=== PATIENT | male | born 1960 | race Caucasian/White ===

== ENCOUNTER 2021-04-11 01:50 | Inpatient (IN) ==
[2021-04-11] MEDS ORDERED: Ondansetron 4 MG/2 ML VIAL IVP PRN (04:22)
[2021-04-11] MEDS ORDERED: Naloxone 0.4 MG/ML INJ IVP PRN (04:22)
[2021-04-11] MEDS ORDERED: Acetaminophen 325 MG TABLET PO PRN (04:22)
[2021-04-11] MEDS ORDERED: Ringers Solution, Lactated 1,000 ML IVC SCH (04:30)
[2021-04-11 05:22] LABS: Mean Corpuscular Volume 88.1 fL (83.0-100.0); Red Blood Count 3.86 M/mcL (4.19-5.50); White Blood Count 12.1 K/mcL (4.3-11.1)
[2021-04-11 05:23] LABS: Mean Corpuscular HGB Conc 35.3 g/dL (31.6-35.5); Mean Corpuscular Hemoglobin 31.1 pg (28.0-33.3); Mean Platelet Volume 10.1 fL (9.4-12.4); Platelet Count 155 K/mcL (140-400); Red Cell Distribution Width 13.2 % (11.5-14.5)
[2021-04-11 05:34] LABS: Prothrombin Time 13.5 Seconds (9.4-12.1)
[2021-04-11 05:35] LABS: INR 1.2
[2021-04-11 05:37] LABS: VBG Ionized Calcium 0.84 mmol/L (1.15-1.35)
[2021-04-11 05:43] LABS: Alanine Aminotransferase 27 Units/L (7-52); Albumin 2.1 g/dL (3.5-5.7); Albumin/Globulin Ratio 0.8 (1.1-2.2); Alkaline Phosphatase 168 Units/L (34-104); Aspartate Amino Transferase 41 Units/L (13-39); BUN/Creatinine Ratio 30 (6-26); Bilirubin,Total 0.4 mg/dL (0.3-1.0); Blood Urea Nitrogen 100 mg/dL (8-23); Calcium 6.3 mg/dL (8.6-10.3); Carbon Dioxide 15 mEq/L (23-29); Chloride 93 mEq/L (98-107); Cholesterol 28 mg/dL (< 200); Globulin 2.8 g/dL (2.4-3.5); Glucose 68 mg/dL (70-105); HDL Cholesterol 4 mg/dL (40-59); Magnesium 1.6 mg/dL (1.6-2.6); Osmolality,Calculated 285 (280-300); Potassium 4.3 mEq/L (3.5-5.1); Sodium 123 mEq/L (136-145); Total Protein 4.9 g/dL (6.4-8.9); Troponin I < 0.03 ng/mL (< 0.04); eGFR For African Americans 23 (> 60); eGFR For Non-African Americans 19 (> 60)
[2021-04-11 05:56] LABS: Lymphocytes # 1.7 K/mcL (0.6-4.6); Monocytes # 1.5 K/mcL (0.0-1.3); Neutrophils # 8.7 K/mcL (1.6-8.9); Toxic Granulation Present (Not Present)
[2021-04-11 05:57] LABS: Platelet Estimate Normal (Normal); Poikilocytosis 1+ (Not Present)
[2021-04-11 05:59] LABS: Triglycerides 128 mg/dL (< 150)
[2021-04-11] MEDS: 0.9 % Sodium Chloride 1,000 ML IVC SCH ×2 (07:39→17:44)
[2021-04-11] MEDS: Calcium Gluconate 1gm/50mL 1 GM/50 ML BAG IVPB SCH ×2 (07:48→09:53)
[2021-04-11] MEDS ORDERED: Piperacillin/Tazobactam 3.375 GM in 0.9 % Sodium Chloride Mini Bag 100 ML IVPB SCH (08:00)
[2021-04-11] MEDS ORDERED: Dextrose Gel 15 GM/37.5 ML TUBE PO PRN ×2 (10:11)
[2021-04-11] MEDS ORDERED: *HR* Dextrose 50 % in Water (Vial) 50 ML VIAL IVP PRN (10:11)
[2021-04-11] MEDS ORDERED: D5% in Water 1,000 ML IVC PRN (10:11)
[2021-04-11 11:43] LABS: Adenovirus Not Detected (Not Detect); Bordetella Pertussis Not Detected (Not Detect); Chlamydophila pneumoniae Not Detected (Not Detect); Coronavirus 229E Not Detected (Not Detect); Coronavirus HKU1 Not Detected (Not Detect); Coronavirus NL63 Not Detected (Not Detect); Coronavirus OC43 Not Detected (Not Detect); Human Metapneumovirus Not Detected (Not Detect); Human Rhinovirus/Enterovirus Not Detected (Not Detect); Influenza A Subtype 2009 H1 Not Detected (Not Detect); Influenza B Not Detected (Not Detect); Mycoplasma pneumoniae Not Detected (Not Detect); Parainfluenza Virus 1 Not Detected (Not Detect); Parainfluenza Virus 2 Not Detected (Not Detect); Parainfluenza Virus 3 Not Detected (Not Detect); Parainfluenza Virus 4 Not Detected (Not Detect); Respiratory Syncytial Virus Not Detected (Not Detect); SARS-CoV-2 Not Detected (Not Detect)
[2021-04-11 13:29] LABS: Calcium 6.7 mg/dL (8.6-10.3)
[2021-04-11 13:58] LABS: Amorphous Sediment,Urine Few per hpf (None-Few); Bilirubin,Urine Negative (Negative); Blood,Urine Negative (Negative); Clarity,Urine Clear (Clear); Color,Urine Light-Yellow (Yellow); Glucose,Urine (UA) Normal (Normal); Ketones,Urine 10 mg/dL (Negative); Leukocyte Esterase,Urine Negative (Negative); Nitrite,Urine Negative (Negative); Protein,Urine 30 mg/dL (Neg-Trace); RBC,Urine 0-3 per hpf (0-3); Specific Gravity,Urine 1.017 (1.010-1.025); Urobilinogen,Urine Normal (Normal); WBC,Urine 0-3 per hpf (0-3)
[2021-04-11 15:27] LABS: Protein/Creatinine Ratio,Urine 1.15 mg/mg (0.00-0.20); Sodium, Urine 22.3 mEq/L
[2021-04-11] MEDS: MethylPREDNISolone 40 MG/ML VIAL IVP SCH (17:43)
[2021-04-11] MEDS: *HR* Heparin 5,000 UNIT/ML VIAL SQ SCH (17:43)
[2021-04-11] MEDS: Piperacillin/Tazobactam 3.375 GM in 0.9 % Sodium Chloride Mini Bag 100 ML IVPB SCH (17:53)
[2021-04-11 23:53] LABS: Calcium 6.7 mg/dL (8.6-10.3); Potassium 4.2 mEq/L (3.5-5.1)
[2021-04-11 23:54] LABS: Calcium 6.7 mg/dL (8.6-10.3); Potassium 4.2 mEq/L (3.5-5.1)
[2021-04-12 03:01] LABS: Hematocrit 32.8 % (37.5-50.1); Hemoglobin 10.9 g/dL (12.9-16.9); Mean Corpuscular HGB Conc 33.2 g/dL (31.6-35.5); Mean Corpuscular Hemoglobin 29.5 pg (28.0-33.3); Mean Platelet Volume 9.9 fL (9.4-12.4); Platelet Count 194 K/mcL (140-400); Red Blood Count 3.69 M/mcL (4.19-5.50); Red Cell Distribution Width 13.2 % (11.5-14.5); White Blood Count 10.7 K/mcL (4.3-11.1)
[2021-04-12 03:06] LABS: Mean Corpuscular Volume 88.9 fL (83.0-100.0)
[2021-04-12 03:21] LABS: Calcium 6.9 mg/dL (8.6-10.3); Potassium 4.2 mEq/L (3.5-5.1)
[2021-04-12] MEDS: Piperacillin/Tazobactam 3.375 GM in 0.9 % Sodium Chloride Mini Bag 100 ML IVPB SCH ×3 (03:29→20:06)
[2021-04-12] MEDS: MethylPREDNISolone 40 MG/ML VIAL IVP SCH ×2 (06:14→17:02)
[2021-04-12] MEDS: *HR* Heparin 5,000 UNIT/ML VIAL SQ SCH ×2 (06:22→17:15)
[2021-04-12] MEDS ORDERED: Lidocaine -MPF 2% 2 ML VIAL ONE (07:10)
[2021-04-12] MEDS ORDERED: *HR* FentaNYL (PF) 100 MCG/2 ML VIAL ONE (07:10)
[2021-04-12] MEDS ORDERED: Ondansetron 4 MG/2 ML VIAL ONE (07:10)
[2021-04-12] MEDS ORDERED: *HR* Midazolam HCl 2 MG/2 ML VIAL ONE (07:13)
[2021-04-12] MEDS ORDERED: Isovue-300 50ML VIAL ONE (07:14)
[2021-04-12] MEDS ORDERED: Ondansetron 4 MG/2 ML VIAL IVP PRN ×2 (07:36→09:20)
[2021-04-12] MEDS ORDERED: *HR* HYDROmorphone PF 0.5 MG/0.5 ML SYRINGE IVP PRN (07:36)
[2021-04-12] MEDS ORDERED: *HR* Meperidine 25 MG/ML SYRINGE IVP PRN (07:36)
[2021-04-12] MEDS ORDERED: *HR* HYDROMORPHONE 2 MG/ML VIAL ONE (08:01)
[2021-04-12] MEDS ORDERED: Dextrose Gel 15 GM/37.5 ML TUBE PO PRN ×2 (09:20)
[2021-04-12] MEDS ORDERED: Naloxone 0.4 MG/ML INJ IVP PRN (09:20)
[2021-04-12] MEDS ORDERED: *HR* Dextrose 50 % in Water (Vial) 50 ML VIAL IVP PRN (09:20)
[2021-04-12] MEDS ORDERED: D5% in Water 1,000 ML IVC PRN (09:20)
[2021-04-12] MEDS ORDERED: Acetaminophen 325 MG TABLET PO PRN (09:20)
[2021-04-12] MEDS: 0.9 % Sodium Chloride 1,000 ML IVC SCH ×3 (16:24→19:56)
[2021-04-13 01:17] LABS: Hematocrit 33.7 % (37.5-50.1); Hemoglobin 11.3 g/dL (12.9-16.9); Mean Corpuscular HGB Conc 33.5 g/dL (31.6-35.5); Mean Corpuscular Hemoglobin 30.3 pg (28.0-33.3); Mean Corpuscular Volume 90.3 fL (83.0-100.0); Mean Platelet Volume 9.5 fL (9.4-12.4); Platelet Count 193 K/mcL (140-400); Red Blood Count 3.73 M/mcL (4.19-5.50); Red Cell Distribution Width 13.6 % (11.5-14.5); White Blood Count 14.5 K/mcL (4.3-11.1)
[2021-04-13 01:38] LABS: BUN/Creatinine Ratio 28 (6-26); Blood Urea Nitrogen 35 mg/dL (8-23); Calcium 7.3 mg/dL (8.6-10.3); Carbon Dioxide 21 mEq/L (23-29); Chloride 99 mEq/L (98-107); Glucose 121 mg/dL (70-105); Osmolality,Calculated 275 (280-300); Potassium 4.2 mEq/L (3.5-5.1); Sodium 128 mEq/L (136-145); eGFR For African Americans > 60 (> 60); eGFR For Non-African Americans 60 (> 60)
[2021-04-13] MEDS: Piperacillin/Tazobactam 3.375 GM in 0.9 % Sodium Chloride Mini Bag 100 ML IVPB SCH ×2 (02:06→13:49)
[2021-04-13] MEDS: 0.9 % Sodium Chloride 1,000 ML IVC SCH ×2 (02:07→09:13)
[2021-04-13] MEDS: *HR* Heparin 5,000 UNIT/ML VIAL SQ SCH ×2 (05:14→17:01)
[2021-04-13] MEDS: MethylPREDNISolone 40 MG/ML VIAL IVP SCH (05:55)
[2021-04-13] MEDS ORDERED: Ringers Solution, Lactated 1,000 ML IVC SCH (11:15)
[2021-04-13] MEDS ORDERED: 0.9 % Sodium Chloride 1,000 ML IVC SCH (11:56)
[2021-04-13] MEDS ORDERED: Lidocaine -MPF 2% 5 ML VIAL ONE (12:20)
[2021-04-13] MEDS ORDERED: Diphenoxylate/Atropine 1 TAB TABLET PO PRN ×2 (14:10→17:38)
[2021-04-13 14:59] VITALS: BP 120/60; PULSE 55; TEMP 97.8; O2SAT 93
[2021-04-13] MEDS ORDERED: NON-FORMULARY MEDICATION 1 EACH EACH (Melatonin 10 MG Tablet) PO PRN (17:38)
[2021-04-13] MEDS ORDERED: NON-FORMULARY MEDICATION 1 EACH EACH (Oxycodone Immed Rel 10 MG Tablet) PO PRN (17:38)
[2021-04-13] MEDS ORDERED: QUEtiapine Fumarate 100 MG TABLET PO SCH (21:00)
[2021-04-13] MEDS ORDERED: Insulin DETEMIR 100 UNIT/ML X5UNITS SUBQ SCH (21:00)
[2021-04-13] MEDS ORDERED: Piperacillin/Tazobactam 3.375 GM in 0.9 % Sodium Chloride Mini Bag 100 ML IVPB SCH (22:00)
[2021-04-14] MEDS ORDERED: Insulin LISPRO 300 UNITS/3 ML VIAL SUBQ SCH (07:30)
[2021-04-14] MEDS ORDERED: Aspirin Enteric Coated 81 MG Tablet PO SCH (09:00)
[2021-04-14] MEDS ORDERED: NON-FORMULARY MEDICATION 1 EACH EACH (Omeprazole [Prilosec] 40 MG Capsule.Dr) PO SCH (09:00)
[2021-04-14] MEDS ORDERED: NON-FORMULARY MEDICATION 1 EACH EACH (Atorvastatin Calcium [Lipitor] 20 MG Tablet) PO SCH (09:00)
== END 2021-04-13 18:04 | disposition home or self-care (01) | DRG 854 ==
LOC: 2NNU → SUATTDRO 04:22 → 3ANU 15:36
PROVIDERS: ADMIT Internal Medicine; ATTEND Student in an Organized Health Care Education/Training Program
PROC: ENDOCBX (2021-04-13 14:40)

== ENCOUNTER 2021-05-19 14:37 | Inpatient (IN) ==
[2021-05-19 15:17] LABS: Hematocrit 47.2 % (37.5-50.1); Hemoglobin 15.5 g/dL (12.9-16.9); Mean Corpuscular HGB Conc 32.8 g/dL (31.6-35.5); Mean Corpuscular Hemoglobin 31.2 pg (28.0-33.3); Mean Platelet Volume 9.1 fL (9.4-12.4); Platelet Count 363 K/mcL (140-400); Red Blood Count 4.97 M/mcL (4.19-5.50); Red Cell Distribution Width 16.9 % (11.5-14.5); White Blood Count 21.3 K/mcL (4.3-11.1)
[2021-05-19] MEDS ORDERED: diazePAM 10 MG/2 ML SYRINGE IVP ONE (15:25)
[2021-05-19] MEDS ORDERED: Ondansetron 4 MG/2 ML VIAL IVP ONE (15:25)
[2021-05-19] MEDS ORDERED: 0.9 % Sodium Chloride 1,000 ML IVC ONE ×2 (15:25→15:59)
[2021-05-19 15:51] LABS: Alanine Aminotransferase 18 Units/L (7-52); Albumin 3.1 g/dL (3.5-5.7); Albumin/Globulin Ratio 0.9 (1.1-2.2); Alkaline Phosphatase 221 Units/L (34-104); Aspartate Amino Transferase 17 Units/L (13-39); BUN/Creatinine Ratio 16 (6-26); Bilirubin,Total 0.4 mg/dL (0.3-1.0); Blood Urea Nitrogen 77 mg/dL (8-23); Calcium 5.9 mg/dL (8.6-10.3); Carbon Dioxide 10 mEq/L (23-29); Chloride 99 mEq/L (98-107); Creatine Kinase 34 Units/L (30-223); Globulin 3.5 g/dL (2.4-3.5); Glucose 126 mg/dL (70-105); Magnesium 1.5 mg/dL (1.6-2.6); Osmolality,Calculated 281 (280-300); Potassium 3.9 mEq/L (3.5-5.1); Sodium 123 mEq/L (136-145); Thyroid Stimulating Hormone 4.878 mcIU/mL (0.340-5.600); Total Protein 6.6 g/dL (6.4-8.9); Troponin I < 0.03 ng/mL (< 0.04); eGFR For African Americans 15 (> 60); eGFR For Non-African Americans 12 (> 60)
[2021-05-19 15:52] LABS: Lymphocytes # 2.1 K/mcL (0.6-4.6); Monocytes # 1.1 K/mcL (0.0-1.3); Neutrophils # 18.1 K/mcL (1.6-8.9)
[2021-05-19 15:53] LABS: Platelet Estimate Normal (Normal)
[2021-05-19 15:54] LABS: Anisocytosis 1+ (Not Present)
[2021-05-19] MEDS ORDERED: Naloxone 0.4 MG/ML INJ IVP PRN (16:56)
[2021-05-19] MEDS ORDERED: Dextrose Gel 15 GM/37.5 ML TUBE PO PRN ×2 (17:00)
[2021-05-19] MEDS ORDERED: *HR* Dextrose 50 % in Water (Syg) 50 ML SYRINGE IVP PRN (17:00)
[2021-05-19] MEDS ORDERED: D5% in Water 1,000 ML IVC PRN (17:00)
[2021-05-19] MEDS: Sodium Bicarbonate 150 MEQ in 0.45 % Sodium Chloride 1,000 ML IVC SCH (18:28)
[2021-05-19] MEDS: *HR* Heparin 5,000 UNIT/ML VIAL SQ SCH (20:50)
[2021-05-19] MEDS: Piperacillin/Tazobactam 3.375 GM in 0.9 % Sodium Chloride Mini Bag 100 ML IVPB SCH ×2 (20:51→20:58)
[2021-05-20 03:37] LABS: Bacteria,Urine Few per hpf (None-Few); Bilirubin,Urine Negative (Negative); Blood,Urine Moderate (Negative); Budding Yeast,Urine Few per hpf (None Seen); Clarity,Urine Turbid (Clear); Color,Urine Yellow (Yellow); Glucose,Urine (UA) Normal (Normal); Ketones,Urine Trace mg/dL (Negative); Leukocyte Esterase,Urine Large (Negative); Mucus,Urine Few per lpf (None-Few); Nitrite,Urine Negative (Negative); PH,Urine 5.5 pH Units (5.0-8.0); Protein,Urine 50 mg/dL (Neg-Trace); RBC,Urine 30-50 per hpf (0-3); Specific Gravity,Urine 1.015 (1.010-1.025); Squamous Epithelial Cell,Urine Few per hpf (None-Few); Urobilinogen,Urine Normal (Normal); WBC,Urine TNTC per hpf (0-3)
[2021-05-20 05:31] LABS: Calcium 4.8 mg/dL (8.6-10.3); Magnesium 1.3 mg/dL (1.6-2.6); Phosphorous 5.3 mg/dL (2.7-4.5)
[2021-05-20] MEDS: Piperacillin/Tazobactam 3.375 GM in 0.9 % Sodium Chloride Mini Bag 100 ML IVPB SCH ×2 (05:35→17:22)
[2021-05-20] MEDS: *HR* Heparin 5,000 UNIT/ML VIAL SQ SCH ×2 (05:35→17:22)
[2021-05-20] MEDS ORDERED: Potassium Chloride 20 MEQ, Lidocaine 1% 2 ML in 0.9 % Sodium Chloride 250 ML IVPB ONE (05:46)
[2021-05-20] MEDS: Calcium Gluconate 1gm/50mL 1 GM/50 ML BAG IVPB SCH ×2 (06:45→09:00)
[2021-05-20 07:00] LABS: Activated Partial Thrombo Time 27.3 Seconds (26.0-36.0); INR 1.1; Prothrombin Time 12.5 Seconds (9.4-12.1)
[2021-05-20] MEDS: Sodium Bicarbonate 150 MEQ in 0.45 % Sodium Chloride 1,000 ML IVC SCH (08:41)
[2021-05-20] MEDS: Insulin LISPRO 300 UNITS/3 ML VIAL SUBQ SCH ×3 (08:51→16:06)
[2021-05-20 09:43] LABS: Basophils # 0.1 K/mcL (0.0-0.2); Basophils % 0.3 %; Eosinophils % 0.1 %; Hematocrit 35.7 % (37.5-50.1); Lymphocytes # 1.1 K/mcL (0.6-4.6); Mean Corpuscular HGB Conc 34.2 g/dL (31.6-35.5); Mean Corpuscular Hemoglobin 31.2 pg (28.0-33.3); Mean Corpuscular Volume 91.3 fL (83.0-100.0); Mean Platelet Volume 9.6 fL (9.4-12.4); Monocytes # 1.7 K/mcL (0.0-1.3); Monocytes % 10.7 %; Neutrophils # 12.4 K/mcL (1.6-8.9); Platelet Count 239 K/mcL (140-400); Red Blood Count 3.91 M/mcL (4.19-5.50); Red Cell Distribution Width 15.9 % (11.5-14.5); Segmented Neutrophils % 79.9 %; White Blood Count 15.5 K/mcL (4.3-11.1)
[2021-05-20 10:12] LABS: Hemoglobin 12.2 g/dL (12.9-16.9)
[2021-05-20] MEDS: Ondansetron 4 MG/2 ML VIAL IVP PRN (11:42)
[2021-05-20 12:26] LABS: Platelet Estimate Normal (Normal)
[2021-05-20] MEDS ORDERED: Diphenoxylate/Atropine 1 TAB TABLET PO PRN (12:56)
[2021-05-20] MEDS ORDERED: *HR* Promethazine 25 MG/ML VIAL IM PRN (12:59)
[2021-05-20] MEDS ORDERED: Sodium Bicarbonate 150 MEQ in D5% in Water 1,000 ML IVC PRN (13:00)
[2021-05-20] MEDS: Sodium Bicarbonate 150 MEQ in D5% in Water 1,000 ML IVC SCH (16:13)
[2021-05-20 16:38] LABS: Phosphorous 4.7 mg/dL (2.7-4.5)
[2021-05-20] MEDS: MethylPREDNISolone 40 MG/ML VIAL IVP SCH (17:22)
[2021-05-20 18:16] LABS: Adenovirus F 40/41 PCR Not detected (Not detect); Astrovirus PCR Not detected (Not detect); C.difficile Toxin A/B Gene PCR Not detected (Not detect); Campylobacter by PCR Not detected (Not detect); Cryptosporidium by PCR Not detected (Not detect); Cyclospora cayetanensis PCR Not detected (Not detect); E. coli O157 by PCR Not detected (Not detect); Entamoeba histolytica PCR Not detected (Not detect); Enteroaggregative E.coli(EAEC) Not detected (Not detect); Enteropathogenic E.coli(EPEC) Not detected (Not detect); Enterotoxigenic E.coli (ETEC) Not detected (Not detect); Giardia lamblia PCR Not detected (Not detect); Norovirus GI/GII PCR Not detected (Not detect); Plesiomonas shigelloides PCR Not detected (Not detect); Rotavirus A PCR Not detected (Not detect); Salmonella PCR Not detected (Not detect); Sapovirus PCR Not detected (Not detect); Shig/EnteroinvasiveE coli EIEC Not detected (Not detect); Shigalike tox-prod E coli STEC Not detected (Not detect); Vibrio PCR Not detected (Not detect); Vibrio cholerae PCR Not detected (Not detect); Yersinia enterocolitica PCR Not detected (Not detect)
[2021-05-20] MEDS: QUEtiapine Fumarate 100 MG TABLET PO SCH (21:37)
[2021-05-21] MEDS: Sodium Bicarbonate 150 MEQ in D5% in Water 1,000 ML IVC SCH ×2 (05:19→09:09)
[2021-05-21] MEDS: MethylPREDNISolone 40 MG/ML VIAL IVP SCH ×2 (05:19→19:37)
[2021-05-21] MEDS: *HR* Heparin 5,000 UNIT/ML VIAL SQ SCH ×2 (05:20→19:37)
[2021-05-21] MEDS: Piperacillin/Tazobactam 3.375 GM in 0.9 % Sodium Chloride Mini Bag 100 ML IVPB SCH ×2 (05:20→19:41)
[2021-05-21 06:45] LABS: VBG Ionized Calcium 0.28 mmol/L (1.15-1.35)
[2021-05-21 07:07] LABS: Basophils % 0.5 %; Hematocrit 34.6 % (37.5-50.1); Hemoglobin 11.1 g/dL (12.9-16.9); Immature Granulocytes % 1.8 % (0-4); Lymphocytes # 0.6 K/mcL (0.6-4.6); Lymphocytes % 7.4 %; Mean Corpuscular HGB Conc 32.1 g/dL (31.6-35.5); Mean Corpuscular Hemoglobin 30.7 pg (28.0-33.3); Mean Corpuscular Volume 95.6 fL (83.0-100.0); Monocytes # 0.6 K/mcL (0.0-1.3); Monocytes % 8.1 %; Neutrophils # 6.1 K/mcL (1.6-8.9); Platelet Count 168 K/mcL (140-400); Red Blood Count 3.62 M/mcL (4.19-5.50); Red Cell Distribution Width 16.1 % (11.5-14.5); Segmented Neutrophils % 82.2 %
[2021-05-21 07:45] LABS: Albumin 2.1 g/dL (3.5-5.7); Albumin/Globulin Ratio 0.8 (1.1-2.2); Bilirubin,Total 0.5 mg/dL (0.3-1.0); Calcium 4.2 mg/dL (8.6-10.3); Globulin 2.5 g/dL (2.4-3.5); Magnesium 1.4 mg/dL (1.6-2.6); Phosphorous 3.1 mg/dL (2.7-4.5); Potassium 2.4 mEq/L (3.5-5.1); Total Protein 4.6 g/dL (6.4-8.9)
[2021-05-21 07:55] LABS: White Blood Count 7.4 K/mcL (4.3-11.1)
[2021-05-21] MEDS: Insulin LISPRO 300 UNITS/3 ML VIAL SUBQ SCH ×3 (09:15→19:58)
[2021-05-21] MEDS: Calcium Gluconate 1gm/50mL 1 GM/50 ML BAG IVPB SCH ×2 (09:24→11:46)
[2021-05-21] MEDS: 0.9 % Sodium Chloride 1,000 ML IVC SCH (13:43)
[2021-05-21] MEDS: Ondansetron 4 MG/2 ML VIAL IVP PRN (13:52)
[2021-05-21 14:02] LABS: Magnesium 2.6 mg/dL (1.6-2.6); Phosphorous 2.5 mg/dL (2.7-4.5)
[2021-05-21 14:11] LABS: Calcium 4.9 mg/dL (8.6-10.3); Potassium 2.5 mEq/L (3.5-5.1)
[2021-05-21] MEDS ORDERED: Ergocalciferol (VIT D2) 50,000 UNIT (1.25MG) CAP PO SCH (15:15)
[2021-05-21] MEDS ORDERED: Potassium Chloride Elixir 20 MEQ/15 ML UDC PO ONE (15:42)
[2021-05-21] MEDS: Potassium Chloride Elixir 20 MEQ/15 ML UDC PO SCH (19:36)
[2021-05-21] MEDS: QUEtiapine Fumarate 100 MG TABLET PO SCH (20:49)
[2021-05-22 01:32] LABS: Basophils % 0.1 %; Hematocrit 27.4 % (37.5-50.1); Hemoglobin 9.4 g/dL (12.9-16.9); Immature Granulocytes % 1.1 % (0-4); Immature Platelets 1.2 % (1.1-6.1); Lymphocytes # 0.4 K/mcL (0.6-4.6); Lymphocytes % 5.5 %; Mean Corpuscular HGB Conc 34.3 g/dL (31.6-35.5); Mean Corpuscular Hemoglobin 30.5 pg (28.0-33.3); Mean Platelet Volume 9.3 fL (9.4-12.4); Monocytes # 0.4 K/mcL (0.0-1.3); Monocytes % 5.5 %; Neutrophils # 6.2 K/mcL (1.6-8.9); Platelet Count 140 K/mcL (140-400); Red Blood Count 3.08 M/mcL (4.19-5.50); Red Cell Distribution Width 15.7 % (11.5-14.5); Segmented Neutrophils % 87.8 %; White Blood Count 7.1 K/mcL (4.3-11.1)
[2021-05-22 01:45] LABS: Magnesium 1.9 mg/dL (1.6-2.6); Phosphorous 1.5 mg/dL (2.7-4.5)
[2021-05-22 01:50] LABS: Calcium 4.6 mg/dL (8.6-10.3)
[2021-05-22] MEDS: 0.9 % Sodium Chloride 1,000 ML IVC SCH ×4 (02:13→19:58)
[2021-05-22] MEDS: Calcium Gluconate 1gm/50mL 1 GM/50 ML BAG IVPB SCH ×3 (02:14→05:43)
[2021-05-22] MEDS: *HR* Heparin 5,000 UNIT/ML VIAL SQ SCH ×2 (05:42→17:56)
[2021-05-22] MEDS: Piperacillin/Tazobactam 3.375 GM in 0.9 % Sodium Chloride Mini Bag 100 ML IVPB SCH ×2 (06:04→17:56)
[2021-05-22] MEDS: MethylPREDNISolone 40 MG/ML VIAL IVP SCH ×2 (06:05→17:56)
[2021-05-22] MEDS ORDERED: Potassium Phosphate 44 MEQ in 0.9 % Sodium Chloride 250 ML IVPB ONE (07:39)
[2021-05-22] MEDS: Insulin LISPRO 300 UNITS/3 ML VIAL SUBQ SCH ×3 (08:13→17:57)
[2021-05-22] MEDS: Potassium Chloride Elixir 20 MEQ/15 ML UDC PO SCH ×2 (08:36→19:56)
[2021-05-22] MEDS ORDERED: Acetaminophen 325 MG TABLET PO PRN (15:40)
[2021-05-22] MEDS: QUEtiapine Fumarate 100 MG TABLET PO SCH (19:56)
[2021-05-22] MEDS ORDERED: Acetaminophen IV 1,000 MG/100 ML BAG IVPB ONE (19:59)
[2021-05-23 04:39] LABS: Basophils % 0.1 %; Hematocrit 26.7 % (37.5-50.1); Hemoglobin 8.8 g/dL (12.9-16.9); Immature Granulocytes % 1.4 % (0-4); Immature Reticulocyte % 12.4 % (11.0-38.0); Lymphocytes # 0.6 K/mcL (0.6-4.6); Lymphocytes % 6.8 %; Mean Corpuscular Hemoglobin 30.8 pg (28.0-33.3); Mean Corpuscular Volume 93.4 fL (83.0-100.0); Mean Platelet Volume 9.5 fL (9.4-12.4); Monocytes # 0.6 K/mcL (0.0-1.3); Monocytes % 6.2 %; Neutrophils # 7.7 K/mcL (1.6-8.9); Platelet Count 138 K/mcL (140-400); Red Blood Count 2.86 M/mcL (4.19-5.50); Red Cell Distribution Width 16.2 % (11.5-14.5); Retculocyte # 0.04 M/mcL (0.05-0.10); Reticulocyte % 1.4 % (1.6-2.8); Segmented Neutrophils % 85.5 %
[2021-05-23 04:51] LABS: Bilirubin,Direct 0.1 mg/dL (0.0-0.2); Bilirubin,Indirect 0.2 mg/dL (0.0-1.0); Bilirubin,Total 0.3 mg/dL (0.3-1.0); Magnesium 1.3 mg/dL (1.6-2.6); Phosphorous 1.4 mg/dL (2.7-4.5)
[2021-05-23 04:52] LABS: Iron 101 mcg/dL (65-175); Lactate Dehydrogenase 230 Units/L (140-271)
[2021-05-23 04:54] LABS: BUN/Creatinine Ratio 22 (6-26); Blood Urea Nitrogen 22 mg/dL (8-23); Calcium 5.7 mg/dL (8.6-10.3); Carbon Dioxide 21 mEq/L (23-29); Chloride 104 mEq/L (98-107); Glucose 182 mg/dL (70-105); Osmolality,Calculated 276 (280-300); Sodium 129 mEq/L (136-145); eGFR For African Americans > 60 (> 60); eGFR For Non-African Americans > 60 (> 60)
[2021-05-23] MEDS ORDERED: Potassium Chloride 40 MEQ, Lidocaine 1% 2 ML in 0.9 % Sodium Chloride 500 ML IVPB ONE (05:10)
[2021-05-23 05:11] LABS: Ferritin 299 ng/mL (20-250)
[2021-05-23 05:23] LABS: Folate 11.8 ng/mL (3.0-16.0)
[2021-05-23] MEDS: Piperacillin/Tazobactam 3.375 GM in 0.9 % Sodium Chloride Mini Bag 100 ML IVPB SCH (05:48)
[2021-05-23] MEDS: Calcium Gluconate 1gm/50mL 1 GM/50 ML BAG IVPB SCH ×2 (05:50→09:29)
[2021-05-23] MEDS: 0.9 % Sodium Chloride 1,000 ML IVC SCH (05:50)
[2021-05-23] MEDS: *HR* Heparin 5,000 UNIT/ML VIAL SQ SCH (05:50)
[2021-05-23] MEDS: MethylPREDNISolone 40 MG/ML VIAL IVP SCH (05:51)
[2021-05-23] MEDS ORDERED: Calcium Gluconate 1gm/50mL 1 GM/50 ML BAG IVPB ONE (08:00)
[2021-05-23] MEDS: Insulin LISPRO 300 UNITS/3 ML VIAL SUBQ SCH ×2 (09:28→12:40)
[2021-05-23] MEDS: Potassium Chloride Elixir 20 MEQ/15 ML UDC PO SCH (09:32)
[2021-05-23] MEDS ORDERED: *HR* OxyCODONE Immed Rel 5 MG TABLET PO ONE ×2 (09:37→17:24)
[2021-05-23 10:41] LABS: Estimated Average Glucose 123 mg/dl; Hemoglobin A1C 5.9 %
[2021-05-23 10:46] VITALS: PULSE 76
[2021-05-23 14:42] VITALS: BP 122/68; TEMP 97.6; O2SAT 96
[2021-05-23] MEDS ORDERED: Piperacillin/Tazobactam 3.375 GM in 0.9 % Sodium Chloride Mini Bag 100 ML IVPB SCH (16:00)
[2021-05-24 09:56] LABS: Immunoglobulin A (CELIAC) 259 mg/dL (68-408); Tissue Transglutaminase IgA <2 U/mL (0-3)
[2021-05-25 03:30] LABS: % Iron Saturation 80 % (20-55); Transferrin 90 mg/dL (203-362)
== END 2021-05-23 18:28 | disposition home or self-care (01) | DRG 871 ==
LOC: EMEROOARM 14:37 → 3ANU 14:37 → SUATTDRO 19:33 → 3ANU 20:16 → SUATTDRO 05-20 14:49
PROVIDERS: ADMIT Family Medicine; ATTEND Internal Medicine

== ENCOUNTER 2021-05-27 15:12 | Inpatient (IN) ==
[2021-05-27] MEDS ORDERED: 0.9 % Sodium Chloride 1,000 ML IV ONE (16:01)
[2021-05-27] MEDS ORDERED: Naloxone 0.4 MG/ML INJ IVP PRN (17:08)
[2021-05-27] MEDS ORDERED: 0.9 % Sodium Chloride 1,000 ML IVC ONE (17:08)
[2021-05-27] MEDS ORDERED: Ondansetron 4 MG/2 ML VIAL IVP PRN (17:14)
[2021-05-27] MEDS ORDERED: Melatonin 3 MG TABLET PO PRN (17:14)
[2021-05-27] MEDS ORDERED: Acetaminophen 325 MG TABLET PO PRN (17:14)
[2021-05-27] MEDS ORDERED: Sodium Bicarbonate 150 MEQ in Water for inj. (sterile) 1,000 ML IVC SCH (17:15)
[2021-05-27] MEDS: QUEtiapine Fumarate 100 MG TABLET PO SCH (21:30)
[2021-05-27] MEDS: *HR* Heparin 5,000 UNIT/ML VIAL SQ SCH (21:31)
[2021-05-28] MEDS: *HR* Heparin 5,000 UNIT/ML VIAL SQ SCH ×3 (02:36→19:42)
[2021-05-28 05:40] LABS: Calcium 5.7 mg/dL (8.6-10.3); Potassium 3.2 mEq/L (3.5-5.1)
[2021-05-28] MEDS ORDERED: Calcium Chloride 1,000 MG in 0.9 % Sodium Chloride 100 ML IVPB ONE (05:56)
[2021-05-28] MEDS ORDERED: Calcium Gluconate 1,000 MG/10 ML VIAL IVPB ONE (06:10)
[2021-05-28] MEDS ORDERED: Calcium Gluconate 1gm/50mL 1 GM/50 ML BAG IVPB ONE ×3 (06:30→17:59)
[2021-05-28] MEDS ORDERED: Sodium Bicarbonate 150 MEQ in Water for inj. (sterile) 1,000 ML IVC SCH (08:00)
[2021-05-28] MEDS: Cholecalciferol (D-3) 1,000 UNIT (25MCG) TABLET PO SCH (08:28)
[2021-05-28] MEDS: predniSONE 20 MG TABLET PO SCH (08:29)
[2021-05-28] MEDS: Magnesium Oxide 400 MG TABLET PO SCH (08:48)
[2021-05-28] MEDS ORDERED: Potassium Chloride Elixir 20 MEQ/15 ML UDC PO ONE ×3 (12:29→17:06)
[2021-05-28] MEDS: Sodium Bicarbonate 150 MEQ in Water for inj. (sterile) 1,000 ML IVC SCH ×2 (13:02→21:49)
[2021-05-28 13:20] LABS: VBG HCO3 8 mEq/L (21-27); VBG PCO2 20 mmHg (41-51); VBG PO2 98 mmHg (25-50)
[2021-05-28 13:35] LABS: Magnesium 1.4 mg/dL (1.6-2.6); Phosphorous 5.7 mg/dL (2.7-4.5)
[2021-05-28 13:42] LABS: Calcium 5.6 mg/dL (8.6-10.3); Potassium 3.3 mEq/L (3.5-5.1)
[2021-05-28 14:37] LABS: Uric Acid 11.2 mg/dL (2.3-7.6)
[2021-05-28] MEDS ORDERED: Ergocalciferol (VIT D2) 50,000 UNIT (1.25MG) CAP PO ONE (18:00)
[2021-05-28] MEDS: Artificial Tears SOLN 15 ML BOTTLE BOTH EYES SCH (19:28)
[2021-05-28] MEDS: QUEtiapine Fumarate 100 MG TABLET PO SCH ×2 (19:30→19:36)
[2021-05-29 01:27] LABS: VBG HCO3 8 mEq/L (21-27); VBG Ionized Calcium 0.83 mmol/L (1.15-1.35); VBG PCO2 13 mmHg (41-51); VBG PO2 138 mmHg (25-50)
[2021-05-29 01:51] LABS: Calcium 5.6 mg/dL (8.6-10.3); Magnesium 1.7 mg/dL (1.6-2.6); Phosphorous 3.5 mg/dL (2.7-4.5)
[2021-05-29] MEDS ORDERED: Calcium Gluconate 1gm/50mL 1 GM/50 ML BAG IVPB ONE ×3 (02:00→15:05)
[2021-05-29 02:26] LABS: Hematocrit 30.4 % (37.5-50.1); Hemoglobin 9.4 g/dL (12.9-16.9); Mean Corpuscular HGB Conc 30.9 g/dL (31.6-35.5); Mean Corpuscular Hemoglobin 30.6 pg (28.0-33.3); Mean Platelet Volume 9.4 fL (9.4-12.4); Platelet Count 153 K/mcL (140-400); Red Blood Count 3.07 M/mcL (4.19-5.50); Red Cell Distribution Width 16.2 % (11.5-14.5); White Blood Count 9.5 K/mcL (4.3-11.1)
[2021-05-29] MEDS ORDERED: Potassium Chloride Elixir 20 MEQ/15 ML UDC PO ONE ×2 (08:03→15:05)
[2021-05-29] MEDS: Cholecalciferol (D-3) 1,000 UNIT (25MCG) TABLET PO SCH (08:42)
[2021-05-29] MEDS: predniSONE 20 MG TABLET PO SCH (08:42)
[2021-05-29] MEDS: Artificial Tears SOLN 15 ML BOTTLE BOTH EYES SCH ×4 (08:43→21:12)
[2021-05-29] MEDS: Magnesium Oxide 400 MG TABLET PO SCH (08:43)
[2021-05-29] MEDS: Sodium Bicarbonate 150 MEQ in Water for inj. (sterile) 1,000 ML IVC SCH ×2 (08:51→23:17)
[2021-05-29 14:46] LABS: Adenovirus F 40/41 PCR Not detected (Not detect); Astrovirus PCR Not detected (Not detect); C.difficile Toxin A/B Gene PCR Not detected (Not detect); Campylobacter by PCR Not detected (Not detect); Cryptosporidium by PCR Not detected (Not detect); Cyclospora cayetanensis PCR Not detected (Not detect); E. coli O157 by PCR Not detected (Not detect); Entamoeba histolytica PCR Not detected (Not detect); Enteroaggregative E.coli(EAEC) Not detected (Not detect); Enteropathogenic E.coli(EPEC) Not detected (Not detect); Enterotoxigenic E.coli (ETEC) Not detected (Not detect); Giardia lamblia PCR Not detected (Not detect); Norovirus GI/GII PCR Not detected (Not detect); Plesiomonas shigelloides PCR Not detected (Not detect); Rotavirus A PCR Not detected (Not detect); Salmonella PCR Not detected (Not detect); Sapovirus PCR Not detected (Not detect); Shig/EnteroinvasiveE coli EIEC Not detected (Not detect); Shigalike tox-prod E coli STEC Not detected (Not detect); Vibrio PCR Not detected (Not detect); Vibrio cholerae PCR Not detected (Not detect); Yersinia enterocolitica PCR Not detected (Not detect)
[2021-05-29 14:57] LABS: Calcium 5.9 mg/dL (8.6-10.3); Potassium 3.5 mEq/L (3.5-5.1)
[2021-05-29] MEDS: *HR* Heparin 5,000 UNIT/ML VIAL SQ SCH (17:30)
[2021-05-30] MEDS: *HR* Heparin 5,000 UNIT/ML VIAL SQ SCH ×2 (05:52→17:04)
[2021-05-30 05:56] LABS: Calcium 6.1 mg/dL (8.6-10.3); Magnesium 1.7 mg/dL (1.6-2.6); Phosphorous 1.7 mg/dL (2.7-4.5); Potassium 3.3 mEq/L (3.5-5.1)
[2021-05-30] MEDS ORDERED: Potassium Chloride Elixir 20 MEQ/15 ML UDC PO ONE (07:20)
[2021-05-30] MEDS ORDERED: Calcium Gluconate 1gm/50mL 1 GM/50 ML BAG IVPB ONE (07:21)
[2021-05-30] MEDS: predniSONE 20 MG TABLET PO SCH (08:10)
[2021-05-30] MEDS: Magnesium Oxide 400 MG TABLET PO SCH (08:10)
[2021-05-30] MEDS: Cholecalciferol (D-3) 1,000 UNIT (25MCG) TABLET PO SCH (08:10)
[2021-05-30] MEDS: Artificial Tears SOLN 15 ML BOTTLE BOTH EYES SCH ×4 (08:11→19:29)
[2021-05-30] MEDS ORDERED: Tuberculin Skin Test (PPD) 5 UNIT/0.1 ML VIAL ID ONE (14:02)
[2021-05-30] MEDS: methylPREDNISolone 125 MG/2 ML VIAL IVP SCH (17:05)
[2021-05-30] MEDS: Diphenoxylate/Atropine 1 TAB TABLET PO PRN (17:08)
[2021-05-30] MEDS: QUEtiapine Fumarate 100 MG TABLET PO SCH (19:29)
[2021-05-31 03:25] LABS: Basophils % 0.1 %; Hematocrit 27.6 % (37.5-50.1); Hemoglobin 8.9 g/dL (12.9-16.9); Immature Granulocytes % 0.4 % (0-4); Lymphocytes # 0.4 K/mcL (0.6-4.6); Lymphocytes % 5.6 %; Mean Corpuscular HGB Conc 32.2 g/dL (31.6-35.5); Mean Corpuscular Hemoglobin 30.5 pg (28.0-33.3); Mean Corpuscular Volume 94.5 fL (83.0-100.0); Mean Platelet Volume 9.1 fL (9.4-12.4); Monocytes # 0.4 K/mcL (0.0-1.3); Monocytes % 6.2 %; Neutrophils # 6.2 K/mcL (1.6-8.9); Platelet Count 148 K/mcL (140-400); Red Blood Count 2.92 M/mcL (4.19-5.50); Red Cell Distribution Width 16.1 % (11.5-14.5); Segmented Neutrophils % 87.7 %; White Blood Count 7.1 K/mcL (4.3-11.1)
[2021-05-31 03:59] LABS: BUN/Creatinine Ratio 26 (6-26); Blood Urea Nitrogen 35 mg/dL (8-23); Calcium 6.2 mg/dL (8.6-10.3); Carbon Dioxide 17 mEq/L (23-29); Chloride 109 mEq/L (98-107); Glucose 193 mg/dL (70-105); Osmolality,Calculated 291 (280-300); Potassium 3.3 mEq/L (3.5-5.1); Sodium 134 mEq/L (136-145); eGFR For African Americans > 60 (> 60); eGFR For Non-African Americans 54 (> 60)
[2021-05-31] MEDS: *HR* Heparin 5,000 UNIT/ML VIAL SQ SCH ×2 (05:57→16:33)
[2021-05-31] MEDS: methylPREDNISolone 125 MG/2 ML VIAL IVP SCH ×2 (05:58→16:33)
[2021-05-31 07:17] LABS: Hepatitis B Surface Antigen Nonreactive (Nonreactive)
[2021-05-31] MEDS: Cholecalciferol (D-3) 1,000 UNIT (25MCG) TABLET PO SCH (07:44)
[2021-05-31] MEDS: Artificial Tears SOLN 15 ML BOTTLE BOTH EYES SCH ×4 (07:45→21:14)
[2021-05-31 07:46] LABS: Hepatitis B Core IgM Nonreactive (Nonreactive)
[2021-05-31 07:47] LABS: HIV-1&2 Antibody & p24 Ag Nonreactive (Nonreactive); Hepatitis C Virus Antibody Nonreactive (Nonreactive)
[2021-05-31 07:48] LABS: Hepatitis A Antibody IgM Nonreactive (Nonreactive)
[2021-05-31] MEDS ORDERED: Calcium Gluconate 1gm/50mL 1 GM/50 ML BAG IVPB ONE (09:11)
[2021-05-31 09:44] LABS: Phosphorous 2.7 mg/dL (2.7-4.5)
[2021-05-31] MEDS ORDERED: Potassium Chloride Elixir 20 MEQ/15 ML UDC PO ONE (10:48)
[2021-05-31] MEDS: Sodium Bicarbonate 75 MEQ in 0.45 % Sodium Chloride 1,000 ML IVC SCH (11:09)
[2021-05-31] MEDS: INFLIXIMAB IVPB SCH (15:39)
[2021-05-31] MEDS: SODIUM CHLORIDE 0.9% IVPB SCH (15:39)
[2021-05-31] MEDS: QUEtiapine Fumarate 100 MG TABLET PO SCH (21:13)
[2021-06-01] MEDS: Sodium Bicarbonate 75 MEQ in 0.45 % Sodium Chloride 1,000 ML IVC SCH ×2 (00:04→09:58)
[2021-06-01] MEDS: *HR* Heparin 5,000 UNIT/ML VIAL SQ SCH ×2 (06:24→17:36)
[2021-06-01] MEDS: methylPREDNISolone 125 MG/2 ML VIAL IVP SCH (06:25)
[2021-06-01 06:35] LABS: Basophils % 0.2 %; Eosinophils % 0.2 %; Hematocrit 27.5 % (37.5-50.1); Hemoglobin 8.9 g/dL (12.9-16.9); Immature Granulocytes % 0.3 % (0-4); Lymphocytes % 15.1 %; Mean Corpuscular HGB Conc 32.4 g/dL (31.6-35.5); Mean Corpuscular Hemoglobin 30.7 pg (28.0-33.3); Mean Corpuscular Volume 94.8 fL (83.0-100.0); Mean Platelet Volume 9.1 fL (9.4-12.4); Monocytes # 0.5 K/mcL (0.0-1.3); Monocytes % 7.8 %; Platelet Count 143 K/mcL (140-400); Segmented Neutrophils % 76.4 %; White Blood Count 6.5 K/mcL (4.3-11.1)
[2021-06-01 06:53] LABS: BUN/Creatinine Ratio 25 (6-26); Blood Urea Nitrogen 27 mg/dL (8-23); Calcium 6.3 mg/dL (8.6-10.3); Carbon Dioxide 18 mEq/L (23-29); Chloride 111 mEq/L (98-107); Glucose 144 mg/dL (70-105); Osmolality,Calculated 290 (280-300); Phosphorous 1.5 mg/dL (2.7-4.5); Sodium 136 mEq/L (136-145); eGFR For African Americans > 60 (> 60); eGFR For Non-African Americans > 60 (> 60)
[2021-06-01] MEDS ORDERED: Potassium Chloride Elixir 20 MEQ/15 ML UDC PO ONE (08:44)
[2021-06-01] MEDS ORDERED: Potassium Phosphate 44 MEQ in 0.9 % Sodium Chloride 250 ML IVPB ONE (08:44)
[2021-06-01] MEDS: Cholecalciferol (D-3) 1,000 UNIT (25MCG) TABLET PO SCH (09:57)
[2021-06-01] MEDS: Artificial Tears SOLN 15 ML BOTTLE BOTH EYES SCH ×3 (12:22→20:43)
[2021-06-01] MEDS ORDERED: Calcium Gluconate 1gm/50mL 1 GM/50 ML BAG IVPB ONE (13:27)
[2021-06-01] MEDS: Diphenoxylate/Atropine 1 TAB TABLET PO PRN ×2 (15:00→20:43)
[2021-06-01] MEDS: Ringers Solution, Lactated 1,000 ML IVC SCH (16:10)
[2021-06-01] MEDS: INFLIXIMAB IVPB SCH (16:56)
[2021-06-01] MEDS: SODIUM CHLORIDE 0.9% IVPB SCH (16:56)
[2021-06-01 17:58] LABS: Bilirubin,Urine Negative (Negative); Blood,Urine Negative (Negative); Clarity,Urine Clear (Clear); Color,Urine Colorless (Yellow); Glucose,Urine (UA) >=1000 mg/dL (Normal); Ketones,Urine Negative (Negative); Leukocyte Esterase,Urine Trace (Negative); Mucus,Urine Few per lpf (None-Few); Nitrite,Urine Negative (Negative); Protein,Urine Trace mg/dL (Neg-Trace); RBC,Urine 0-3 per hpf (0-3); Specific Gravity,Urine 1.016 (1.010-1.025); Urobilinogen,Urine Normal (Normal)
[2021-06-01] MEDS: QUEtiapine Fumarate 100 MG TABLET PO SCH (20:41)
[2021-06-01] MEDS: *HR* OxyCODONE Immed Rel 5 MG TABLET PO PRN (20:46)
[2021-06-02] MEDS: Ringers Solution, Lactated 1,000 ML IVC SCH ×2 (01:07→10:54)
[2021-06-02 05:06] LABS: Basophils % 0.1 %; Eosinophils % 0.5 %; Hematocrit 27.1 % (37.5-50.1); Hemoglobin 8.6 g/dL (12.9-16.9); Immature Granulocytes % 0.4 % (0-4); Lymphocytes % 25.9 %; Mean Corpuscular HGB Conc 31.7 g/dL (31.6-35.5); Mean Corpuscular Volume 94.4 fL (83.0-100.0); Mean Platelet Volume 8.9 fL (9.4-12.4); Monocytes # 0.5 K/mcL (0.0-1.3); Monocytes % 6.8 %; Neutrophils # 5.2 K/mcL (1.6-8.9); Platelet Count 138 K/mcL (140-400); Red Blood Count 2.87 M/mcL (4.19-5.50); Red Cell Distribution Width 15.9 % (11.5-14.5); Segmented Neutrophils % 66.3 %; White Blood Count 7.9 K/mcL (4.3-11.1)
[2021-06-02 05:18] LABS: BUN/Creatinine Ratio 25 (6-26); Blood Urea Nitrogen 22 mg/dL (8-23); Calcium 6.4 mg/dL (8.6-10.3); Carbon Dioxide 23 mEq/L (23-29); Chloride 110 mEq/L (98-107); Glucose 116 mg/dL (70-105); Magnesium 1.2 mg/dL (1.6-2.6); Osmolality,Calculated 290 (280-300); Phosphorous 2.4 mg/dL (2.7-4.5); Potassium 3.5 mEq/L (3.5-5.1); Sodium 138 mEq/L (136-145); eGFR For African Americans > 60 (> 60); eGFR For Non-African Americans > 60 (> 60)
[2021-06-02] MEDS: *HR* Heparin 5,000 UNIT/ML VIAL SQ SCH ×2 (05:54→18:24)
[2021-06-02] MEDS: Cholecalciferol (D-3) 1,000 UNIT (25MCG) TABLET PO SCH (08:28)
[2021-06-02] MEDS: predniSONE 20 MG TABLET PO SCH (08:29)
[2021-06-02] MEDS: Artificial Tears SOLN 15 ML BOTTLE BOTH EYES SCH ×4 (08:29→21:03)
[2021-06-02] MEDS: *HR* OxyCODONE Immed Rel 5 MG TABLET PO PRN ×2 (08:43→18:31)
[2021-06-02 09:09] LABS: Sodium, Urine 43.5 mEq/L
[2021-06-02] MEDS ORDERED: Calcium Gluconate 1gm/50mL 1 GM/50 ML BAG IVPB ONE (09:24)
[2021-06-02] MEDS ORDERED: Ipratropium/Albuterol Neb 3 ML IH ONE (13:45)
[2021-06-02] MEDS: QUEtiapine Fumarate 100 MG TABLET PO SCH (21:01)
[2021-06-03] MEDS: *HR* Heparin 5,000 UNIT/ML VIAL SQ SCH (04:47)
[2021-06-03 05:20] LABS: BUN/Creatinine Ratio 24 (6-26); Blood Urea Nitrogen 20 mg/dL (8-23); Calcium 6.5 mg/dL (8.6-10.3); Carbon Dioxide 19 mEq/L (23-29); Chloride 106 mEq/L (98-107); Glucose 206 mg/dL (70-105); Magnesium 1.3 mg/dL (1.6-2.6); Osmolality,Calculated 287 (280-300); Phosphorous 2.9 mg/dL (2.7-4.5); Potassium 4.1 mEq/L (3.5-5.1); Sodium 134 mEq/L (136-145); eGFR For African Americans > 60 (> 60); eGFR For Non-African Americans > 60 (> 60)
[2021-06-03 06:44] VITALS: BP 120/63; PULSE 99; TEMP 97.7; O2SAT 98
[2021-06-03] MEDS ORDERED: Calcium Gluconate 1gm/50mL 1 GM/50 ML BAG IVPB SCH (09:00)
[2021-06-03] MEDS: Cholecalciferol (D-3) 1,000 UNIT (25MCG) TABLET PO SCH (09:19)
[2021-06-03] MEDS: predniSONE 20 MG TABLET PO SCH (09:20)
[2021-06-03] MEDS ORDERED: Calcium Gluconate 1gm/50mL 1 GM/50 ML BAG IVPB ONE (10:00)
[2021-06-03 19:05] LABS: QuantiFERON Mitogen minus NIL 0.09 IU/mL
[2021-06-04 09:57] LABS: QuantiFERON NIL 0.01 IU/mL; QuantiFERON-TB Gold In-Tube INDETERMINATE (Negative)
[2021-06-11] MEDS ORDERED: Ergocalciferol (VIT D2) 50,000 UNIT (1.25MG) CAP PO SCH (09:00)
== END 2021-06-03 13:57 | disposition home or self-care (01) | DRG 394 ==
LOC: EMEROOARM 15:12 → SUATTDRO 19:27 → 3BNU 19:27 → UNDODISIN 23:21
PROVIDERS: ADMIT Internal Medicine; ATTEND Internal Medicine

== ENCOUNTER 2021-07-13 13:36 | Inpatient (IN) ==
[2021-07-13] MEDS ORDERED: 0.9 % Sodium Chloride 1,000 ML IVC ONE (14:36)
[2021-07-13] MEDS ORDERED: Morphine Sulfate 2 MG/ML SYRINGE IVP ONE (14:42)
[2021-07-13] MEDS ORDERED: Ondansetron 4 MG/2 ML VIAL IVP ONE (14:42)
[2021-07-13 14:53] LABS: Basophils % 0.2 %; Hematocrit 41.8 % (37.5-50.1); Hemoglobin 13.2 g/dL (12.9-16.9); Immature Granulocytes % 0.7 % (0-4); Lymphocytes # 0.9 K/mcL (0.6-4.6); Lymphocytes % 7.6 %; Mean Corpuscular HGB Conc 31.6 g/dL (31.6-35.5); Mean Corpuscular Hemoglobin 30.4 pg (28.0-33.3); Mean Corpuscular Volume 96.3 fL (83.0-100.0); Mean Platelet Volume 10.4 fL (9.4-12.4); Monocytes # 0.6 K/mcL (0.0-1.3); Neutrophils # 10.5 K/mcL (1.6-8.9); Platelet Count 274 K/mcL (140-400); Red Blood Count 4.34 M/mcL (4.19-5.50); Red Cell Distribution Width 15.2 % (11.5-14.5); Segmented Neutrophils % 86.5 %; White Blood Count 12.1 K/mcL (4.3-11.1)
[2021-07-13 15:16] LABS: Alanine Aminotransferase 27 Units/L (7-52); Albumin 2.1 g/dL (3.5-5.7); Albumin/Globulin Ratio 0.6 (1.1-2.2); Alkaline Phosphatase 270 Units/L (34-104); Aspartate Amino Transferase 30 Units/L (13-39); BUN/Creatinine Ratio 66 (6-26); Bilirubin,Total 0.4 mg/dL (0.3-1.0); Blood Urea Nitrogen 59 mg/dL (8-23); Calcium 6.2 mg/dL (8.6-10.3); Carbon Dioxide 26 mEq/L (23-29); Chloride 93 mEq/L (98-107); Globulin 3.5 g/dL (2.4-3.5); Glucose 123 mg/dL (70-105); Lipase 4 Units/L (11-82); Osmolality,Calculated 286 (280-300); Potassium 3.9 mEq/L (3.5-5.1); Sodium 129 mEq/L (136-145); Total Protein 5.6 g/dL (6.4-8.9); Troponin I 0.13 ng/mL (< 0.04); eGFR For African Americans > 60 (> 60); eGFR For Non-African Americans > 60 (> 60)
[2021-07-13] MEDS ORDERED: Aspirin 81 MG TAB.CHEW PO SCH (16:00)
[2021-07-13 16:16] LABS: Bilirubin,Urine Negative (Negative); Blood,Urine Negative (Negative); Clarity,Urine Clear (Clear); Color,Urine Yellow (Yellow); Glucose,Urine (UA) Normal (Normal); Ketones,Urine 20 mg/dL (Negative); Leukocyte Esterase,Urine Moderate (Negative); Nitrite,Urine Negative (Negative); Protein,Urine 30 mg/dL (Neg-Trace); RBC,Urine 0-3 per hpf (0-3); Specific Gravity,Urine 1.026 (1.010-1.025); Squamous Epithelial Cell,Urine Few per hpf (None-Few); Urobilinogen,Urine Normal (Normal); WBC,Urine 15-30 per hpf (0-3)
[2021-07-13] MEDS ORDERED: cefTRIAXone 1,000 MG in 0.9 % Sodium Chloride Mini Bag 100 ML IVPB SCH (16:31)
[2021-07-13] MEDS ORDERED: Melatonin 3 MG TABLET PO PRN (16:59)
[2021-07-13] MEDS ORDERED: Acetaminophen 325 MG TABLET PO PRN (16:59)
[2021-07-13] MEDS ORDERED: Naloxone 0.4 MG/ML INJ IVP PRN (16:59)
[2021-07-13] MEDS ORDERED: Aspirin 81 MG TAB.CHEW PO ONE (17:52)
[2021-07-13 17:54] LABS: BUN/Creatinine Ratio 67 (6-26); Blood Urea Nitrogen 54 mg/dL (8-23); Calcium 5.6 mg/dL (8.6-10.3); Carbon Dioxide 26 mEq/L (23-29); Chloride 97 mEq/L (98-107); Glucose 102 mg/dL (70-105); Osmolality,Calculated 285 (280-300); Potassium 3.7 mEq/L (3.5-5.1); Sodium 130 mEq/L (136-145); Troponin I 0.08 ng/mL (< 0.04); eGFR For African Americans > 60 (> 60); eGFR For Non-African Americans > 60 (> 60)
[2021-07-13] MEDS ORDERED: *HR* Dextrose 50 % in Water (Syg) 50 ML SYRINGE IVP PRN (18:01)
[2021-07-13] MEDS ORDERED: D5% in Water 1,000 ML IVC PRN (18:01)
[2021-07-13] MEDS ORDERED: Dextrose Gel 15 GM/37.5 ML TUBE PO PRN ×2 (18:01)
[2021-07-13] MEDS: 0.9 % Sodium Chloride 1,000 ML IVC SCH (20:35)
[2021-07-13] MEDS: Piperacillin/Tazobactam 3.375 GM in 0.9 % Sodium Chloride Mini Bag 100 ML IVPB SCH (20:35)
[2021-07-13] MEDS: Calcium Gluconate 1gm/50mL 1 GM/50 ML BAG IVPB SCH ×2 (21:21→21:58)
[2021-07-13] MEDS ORDERED: cefTRIAXone 1,000 MG in 0.9 % Sodium Chloride Mini Bag 100 ML IVPB ONE (21:26)
[2021-07-13] MEDS ORDERED: Aspirin Enteric Coated 325 MG Tablet PO ONE (21:26)
[2021-07-14] MEDS ORDERED: Acetaminophen IV 1,000 MG/100 ML BAG IVPB ONE (00:01)
[2021-07-14] MEDS: Piperacillin/Tazobactam 3.375 GM in 0.9 % Sodium Chloride Mini Bag 100 ML IVPB SCH ×3 (01:26→16:05)
[2021-07-14 07:36] LABS: Basophils % 0.3 %; Eosinophils # 0.1 K/mcL (0.0-0.6); Eosinophils % 0.5 %; Hematocrit 38.1 % (37.5-50.1); Hemoglobin 12.2 g/dL (12.9-16.9); Immature Granulocytes % 0.6 % (0-4); Lymphocytes # 1.6 K/mcL (0.6-4.6); Lymphocytes % 16.2 %; Mean Corpuscular Hemoglobin 31.1 pg (28.0-33.3); Mean Corpuscular Volume 97.2 fL (83.0-100.0); Mean Platelet Volume 10.3 fL (9.4-12.4); Monocytes # 1.2 K/mcL (0.0-1.3); Monocytes % 11.8 %; Neutrophils # 7.1 K/mcL (1.6-8.9); Platelet Count 255 K/mcL (140-400); Red Blood Count 3.92 M/mcL (4.19-5.50); Red Cell Distribution Width 15.3 % (11.5-14.5); Segmented Neutrophils % 70.6 %
[2021-07-14 07:44] LABS: INR 1.2; Prothrombin Time 13.3 Seconds (9.4-12.1)
[2021-07-14 08:05] LABS: BUN/Creatinine Ratio 57 (6-26); Blood Urea Nitrogen 48 mg/dL (8-23); Calcium 5.9 mg/dL (8.6-10.3); Carbon Dioxide 25 mEq/L (23-29); Chloride 96 mEq/L (98-107); Chol/HDL Ratio 5.6 (0-4.9); Cholesterol 39 mg/dL (< 200); Glucose 71 mg/dL (70-105); HDL Cholesterol 7 mg/dL (40-59); LDL Cholesterol,Calculated 4 mg/dL (< 100); Magnesium 1.6 mg/dL (1.6-2.6); Osmolality,Calculated 283 (280-300); Phosphorous 2.3 mg/dL (2.7-4.5); Potassium 4.3 mEq/L (3.5-5.1); Sodium 131 mEq/L (136-145); Triglycerides 139 mg/dL (< 150); Troponin I 0.07 ng/mL (< 0.04); eGFR For African Americans > 60 (> 60); eGFR For Non-African Americans > 60 (> 60)
[2021-07-14] MEDS ORDERED: Isovue-370 500 ML BOTTLE IVP ONE (08:23)
[2021-07-14] MEDS ORDERED: Calcium Gluconate 1gm/50mL 1 GM/50 ML BAG IVPB ONE (08:28)
[2021-07-14 08:50] LABS: Adenovirus F 40/41 PCR Not detected (Not detect); Astrovirus PCR Not detected (Not detect); C.difficile Toxin A/B Gene PCR Not detected (Not detect); Campylobacter by PCR Not detected (Not detect); Cryptosporidium by PCR Not detected (Not detect); Cyclospora cayetanensis PCR Not detected (Not detect); E. coli O157 by PCR Not detected (Not detect); Entamoeba histolytica PCR Not detected (Not detect); Enteroaggregative E.coli(EAEC) Not detected (Not detect); Enteropathogenic E.coli(EPEC) Not detected (Not detect); Enterotoxigenic E.coli (ETEC) Not detected (Not detect); Giardia lamblia PCR Not detected (Not detect); Norovirus GI/GII PCR Not detected (Not detect); Plesiomonas shigelloides PCR Not detected (Not detect); Rotavirus A PCR Not detected (Not detect); Salmonella PCR Not detected (Not detect); Sapovirus PCR Not detected (Not detect); Shig/EnteroinvasiveE coli EIEC Not detected (Not detect); Shigalike tox-prod E coli STEC Not detected (Not detect); Vibrio PCR Not detected (Not detect); Vibrio cholerae PCR Not detected (Not detect); Yersinia enterocolitica PCR Not detected (Not detect)
[2021-07-14] MEDS ORDERED: Calcium Gluconate 1,000 MG/10 ML VIAL IVPB ONE (09:00)
[2021-07-14] MEDS: Aspirin Enteric Coated 81 MG Tablet PO SCH (09:07)
[2021-07-14] MEDS: 0.9 % Sodium Chloride 1,000 ML IVC SCH ×3 (09:08→14:22)
[2021-07-14 10:58] LABS: Estimated Average Glucose 143 mg/dl; Hemoglobin A1C 6.6 %
[2021-07-14] MEDS ORDERED: Magnesium Sulfate 1 GM/102 ML PIGGYBACK IVPB ONE (11:22)
[2021-07-14] MEDS ORDERED: *HR* Heparin 5,000 UNIT/ML VIAL IVP ONE (12:54)
[2021-07-14] MEDS ORDERED: *HR* Heparin 5,000 UNIT/ML VIAL IVP PRN ×2 (12:54)
[2021-07-14 13:12] LABS: Acinetobacter baumannii by PCR Not Detected (Not Detect); Candida albicans by PCR Not Detected (Not Detect); Candida glabrata by PCR Not Detected (Not Detect); Candida krusei by PCR Not Detected (Not Detect); Candida parapsilosis by PCR Not Detected (Not Detect); Candida tropicalis by PCR Not Detected (Not Detect); Enterobacter cloacae Cmplx PCR Not Detected (Not Detect); Enterobacteriaceae by PCR Not Detected (Not Detect); Enterococcus by PCR Not Detected (Not Detect); Escherichia coli by PCR Not Detected (Not Detect); Klebsiella oxytoca by PCR Not Detected (Not Detect); Klebsiella pneumoniae by PCR Not Detected (Not Detect); Proteus by PCR Not Detected (Not Detect); Pseudomonas aeruginosa by PCR Not Detected (Not Detect); Serratia marcescens by PCR Not Detected (Not Detect); Staphylococcus aureus by PCR Not Detected (Not Detect); Staphylococcus by PCR Not Detected (Not Detect); Streptococcus agalactiae(B)PCR Not Detected (Not Detect); Streptococcus by PCR Not Detected (Not Detect); Streptococcus pneumoniae PCR Not Detected (Not Detect); Streptococcus pyogenes (A) PCR Not Detected (Not Detect)
[2021-07-14] MEDS ORDERED: Perflutren Lipid Microsphere 1.3 ML in 0.9 % Sodium Chloride 8.7 ML IVP PRN (13:41)
[2021-07-14] MEDS: Heparin 25,000 UNIT/250 ML 25,000 UNIT/250 ML IV.SOLN IVC SCH (14:21)
[2021-07-14] MEDS: QUEtiapine Fumarate 100 MG TABLET PO SCH (20:09)
[2021-07-14 20:55] LABS: BUN/Creatinine Ratio 47 (6-26); Blood Urea Nitrogen 35 mg/dL (8-23); Calcium 5.7 mg/dL (8.6-10.3); Carbon Dioxide 26 mEq/L (23-29); Chloride 102 mEq/L (98-107); Glucose 71 mg/dL (70-105); Osmolality,Calculated 288 (280-300); Potassium 3.5 mEq/L (3.5-5.1); Sodium 136 mEq/L (136-145); eGFR For African Americans > 60 (> 60); eGFR For Non-African Americans > 60 (> 60)
[2021-07-14] MEDS: Calcium Gluconate 1gm/50mL 1 GM/50 ML BAG IVPB SCH ×2 (21:53→23:20)
[2021-07-15] MEDS: Piperacillin/Tazobactam 3.375 GM in 0.9 % Sodium Chloride Mini Bag 100 ML IVPB SCH ×4 (01:13→23:49)
[2021-07-15 02:00] LABS: Basophils % 0.2 %; Eosinophils # 0.1 K/mcL (0.0-0.6); Eosinophils % 0.5 %; Hematocrit 31.4 % (37.5-50.1); Hemoglobin 9.9 g/dL (12.9-16.9); Immature Granulocytes % 0.9 % (0-4); Lymphocytes # 1.5 K/mcL (0.6-4.6); Lymphocytes % 14.9 %; Mean Corpuscular HGB Conc 31.5 g/dL (31.6-35.5); Mean Corpuscular Hemoglobin 30.3 pg (28.0-33.3); Mean Platelet Volume 10.4 fL (9.4-12.4); Monocytes # 0.9 K/mcL (0.0-1.3); Monocytes % 8.4 %; Neutrophils # 7.6 K/mcL (1.6-8.9); Platelet Count 188 K/mcL (140-400); Red Blood Count 3.27 M/mcL (4.19-5.50); Segmented Neutrophils % 75.1 %; White Blood Count 10.1 K/mcL (4.3-11.1)
[2021-07-15 02:33] LABS: BUN/Creatinine Ratio 43 (6-26); Blood Urea Nitrogen 30 mg/dL (8-23); Calcium 5.8 mg/dL (8.6-10.3); Carbon Dioxide 25 mEq/L (23-29); Chloride 104 mEq/L (98-107); Glucose 79 mg/dL (70-105); Magnesium 1.8 mg/dL (1.6-2.6); Osmolality,Calculated 291 (280-300); Phosphorous 3.2 mg/dL (2.7-4.5); Potassium 2.8 mEq/L (3.5-5.1); Sodium 138 mEq/L (136-145); eGFR For African Americans > 60 (> 60); eGFR For Non-African Americans > 60 (> 60)
[2021-07-15] MEDS: Calcium Gluconate 1gm/50mL 1 GM/50 ML BAG IVPB SCH ×2 (03:35→04:07)
[2021-07-15] MEDS: Potassium Chloride Elixir 20 MEQ/15 ML UDC PO ONE ×2 (03:36→04:20)
[2021-07-15] MEDS ORDERED: Calcium Gluconate 1gm/50mL 1 GM/50 ML BAG IVPB ONE ×2 (08:09→18:28)
[2021-07-15] MEDS: Magnesium Oxide 400 MG TABLET PO SCH (08:16)
[2021-07-15] MEDS: Aspirin Enteric Coated 81 MG Tablet PO SCH (08:16)
[2021-07-15] MEDS: Heparin 25,000 UNIT/250 ML 25,000 UNIT/250 ML IV.SOLN IVC SCH (11:44)
[2021-07-15] MEDS ORDERED: *HR* OxyCODONE Immed Rel 5 MG TABLET PO PRN ×3 (14:11→18:22)
[2021-07-15 14:52] LABS: Hematocrit 32.1 % (37.5-50.1)
[2021-07-15 14:57] LABS: Hemoglobin 10.1 g/dL (12.9-16.9)
[2021-07-15 14:58] LABS: BUN/Creatinine Ratio 31 (6-26); Blood Urea Nitrogen 20 mg/dL (8-23); Calcium 6.1 mg/dL (8.6-10.3); Carbon Dioxide 28 mEq/L (23-29); Chloride 102 mEq/L (98-107); Glucose 72 mg/dL (70-105); Osmolality,Calculated 279 (280-300); Potassium 2.7 mEq/L (3.5-5.1); Sodium 134 mEq/L (136-145); eGFR For African Americans > 60 (> 60); eGFR For Non-African Americans > 60 (> 60)
[2021-07-15 17:32] LABS: Basophils % 0.2 %; Eosinophils # 0.1 K/mcL (0.0-0.6); Eosinophils % 0.6 %; Hematocrit 30.8 % (37.5-50.1); Hemoglobin 10.1 g/dL (12.9-16.9); Immature Granulocytes % 1.4 % (0-4); Lymphocytes # 1.6 K/mcL (0.6-4.6); Lymphocytes % 11.3 %; Mean Corpuscular HGB Conc 32.8 g/dL (31.6-35.5); Mean Corpuscular Hemoglobin 30.7 pg (28.0-33.3); Mean Corpuscular Volume 93.6 fL (83.0-100.0); Monocytes # 0.9 K/mcL (0.0-1.3); Monocytes % 6.2 %; Neutrophils # 11.2 K/mcL (1.6-8.9); Nucleated Red Blood Cells 0.1 /100 WBC (0); Platelet Count 145 K/mcL (140-400); Red Blood Count 3.29 M/mcL (4.19-5.50); Red Cell Distribution Width 14.9 % (11.5-14.5); Segmented Neutrophils % 80.3 %
[2021-07-15] MEDS ORDERED: *HR* OxyCODONE Immed Rel 5 MG TABLET PO ONE (17:34)
[2021-07-15 18:09] LABS: BUN/Creatinine Ratio 34 (6-26); Blood Urea Nitrogen 19 mg/dL (8-23); Carbon Dioxide 20 mEq/L (23-29); Chloride 106 mEq/L (98-107); Glucose 78 mg/dL (70-105); Osmolality,Calculated 279 (280-300); Potassium 3.9 mEq/L (3.5-5.1); Sodium 134 mEq/L (136-145); eGFR For African Americans > 60 (> 60); eGFR For Non-African Americans > 60 (> 60)
[2021-07-15] MEDS ORDERED: *HR* LORazepam 2 MG/ML VIAL IVP ONE (18:37)
[2021-07-15] MEDS: QUEtiapine Fumarate 100 MG TABLET PO SCH (20:12)
[2021-07-15] MEDS: Diphenoxylate/Atropine 1 TAB TABLET PO PRN (20:12)
[2021-07-15] MEDS: Melatonin 3 MG TABLET PO SCH (20:13)
[2021-07-16] MEDS: Heparin 25,000 UNIT/250 ML 25,000 UNIT/250 ML IV.SOLN IVC SCH (04:58)
[2021-07-16 06:35] LABS: Basophils % 0.2 %; Eosinophils # 0.1 K/mcL (0.0-0.6); Eosinophils % 1.2 %; Hemoglobin 9.1 g/dL (12.9-16.9); Immature Granulocytes % 1.1 % (0-4); Lymphocytes # 1.5 K/mcL (0.6-4.6); Lymphocytes % 15.8 %; Mean Corpuscular HGB Conc 32.5 g/dL (31.6-35.5); Mean Corpuscular Hemoglobin 31.4 pg (28.0-33.3); Mean Corpuscular Volume 96.6 fL (83.0-100.0); Mean Platelet Volume 10.5 fL (9.4-12.4); Monocytes # 0.7 K/mcL (0.0-1.3); Monocytes % 6.9 %; Neutrophils # 7.3 K/mcL (1.6-8.9); Platelet Count 159 K/mcL (140-400); Red Cell Distribution Width 14.9 % (11.5-14.5); Segmented Neutrophils % 74.8 %; White Blood Count 9.7 K/mcL (4.3-11.1)
[2021-07-16] MEDS ORDERED: 0.9 % Sodium Chloride 250 ML IVC ONE (08:17)
[2021-07-16 08:33] LABS: BUN/Creatinine Ratio 23 (6-26); Blood Urea Nitrogen 14 mg/dL (8-23); Calcium 5.8 mg/dL (8.6-10.3); Carbon Dioxide 24 mEq/L (23-29); Chloride 104 mEq/L (98-107); Glucose 89 mg/dL (70-105); Magnesium 1.7 mg/dL (1.6-2.6); Osmolality,Calculated 276 (280-300); Phosphorous 1.5 mg/dL (2.7-4.5); Sodium 133 mEq/L (136-145); eGFR For African Americans > 60 (> 60); eGFR For Non-African Americans > 60 (> 60)
[2021-07-16] MEDS: Magnesium Oxide 400 MG TABLET PO SCH (08:36)
[2021-07-16] MEDS: Piperacillin/Tazobactam 3.375 GM in 0.9 % Sodium Chloride Mini Bag 100 ML IVPB SCH ×2 (08:36→16:38)
[2021-07-16] MEDS: Aspirin Enteric Coated 81 MG Tablet PO SCH (08:36)
[2021-07-16] MEDS ORDERED: Potassium Phosphate 44 MEQ in 0.9 % Sodium Chloride 250 ML IVPB ONE (09:12)
[2021-07-16] MEDS: Calcium Gluconate 1gm/50mL 1 GM/50 ML BAG IVPB SCH ×2 (10:14→11:25)
[2021-07-16] MEDS: *HR* OxyCODONE Immed Rel 5 MG TABLET PO PRN ×2 (14:00→20:08)
[2021-07-16] MEDS ORDERED: Potassium Chloride Elixir 20 MEQ/15 ML UDC PO ONE (14:00)
[2021-07-16] MEDS: Diphenoxylate/Atropine 1 TAB TABLET PO PRN (14:01)
[2021-07-16] MEDS: QUEtiapine Fumarate 100 MG TABLET PO SCH (20:07)
[2021-07-16] MEDS: Melatonin 3 MG TABLET PO SCH (20:07)
[2021-07-17] MEDS: Heparin 25,000 UNIT/250 ML 25,000 UNIT/250 ML IV.SOLN IVC SCH ×2 (01:24→20:26)
[2021-07-17] MEDS: Piperacillin/Tazobactam 3.375 GM in 0.9 % Sodium Chloride Mini Bag 100 ML IVPB SCH ×2 (01:58→09:10)
[2021-07-17] MEDS: *HR* OxyCODONE Immed Rel 5 MG TABLET PO PRN ×6 (03:33→21:57)
[2021-07-17 08:55] LABS: Basophils % 0.3 %; Eosinophils # 0.1 K/mcL (0.0-0.6); Eosinophils % 0.6 %; Hematocrit 35.5 % (37.5-50.1); Immature Granulocytes % 0.7 % (0-4); Lymphocytes # 1.2 K/mcL (0.6-4.6); Lymphocytes % 12.7 %; Mean Corpuscular HGB Conc 31.5 g/dL (31.6-35.5); Mean Corpuscular Hemoglobin 30.9 pg (28.0-33.3); Mean Corpuscular Volume 98.1 fL (83.0-100.0); Mean Platelet Volume 10.5 fL (9.4-12.4); Monocytes # 0.7 K/mcL (0.0-1.3); Monocytes % 6.7 %; Neutrophils # 7.7 K/mcL (1.6-8.9); Platelet Count 155 K/mcL (140-400); Red Blood Count 3.62 M/mcL (4.19-5.50); Red Cell Distribution Width 15.5 % (11.5-14.5); White Blood Count 9.8 K/mcL (4.3-11.1)
[2021-07-17] MEDS: Aspirin Enteric Coated 81 MG Tablet PO SCH (09:10)
[2021-07-17] MEDS: Magnesium Oxide 400 MG TABLET PO SCH (09:11)
[2021-07-17 09:34] LABS: Hemoglobin 11.2 g/dL (12.9-16.9)
[2021-07-17 10:02] LABS: BUN/Creatinine Ratio 17 (6-26); Blood Urea Nitrogen 11 mg/dL (8-23); Calcium 6.4 mg/dL (8.6-10.3); Carbon Dioxide 24 mEq/L (23-29); Chloride 104 mEq/L (98-107); Glucose 97 mg/dL (70-105); Magnesium 1.5 mg/dL (1.6-2.6); Osmolality,Calculated 273 (280-300); Phosphorous 2.2 mg/dL (2.7-4.5); Potassium 3.9 mEq/L (3.5-5.1); Sodium 132 mEq/L (136-145); eGFR For African Americans > 60 (> 60); eGFR For Non-African Americans > 60 (> 60)
[2021-07-17] MEDS ORDERED: Potassium Phosphate 44 MEQ in 0.9 % Sodium Chloride 250 ML IVPB ONE (13:54)
[2021-07-17] MEDS ORDERED: Calcium Gluconate 1gm/50mL 1 GM/50 ML BAG IVPB ONE (13:54)
[2021-07-17] MEDS: levoFLOXacin 750 MG TABLET PO SCH (17:01)
[2021-07-17] MEDS: QUEtiapine Fumarate 100 MG TABLET PO SCH (19:54)
[2021-07-17] MEDS: Melatonin 3 MG TABLET PO SCH (19:55)
[2021-07-18] MEDS: *HR* OxyCODONE Immed Rel 5 MG TABLET PO PRN ×4 (00:05→09:14)
[2021-07-18 06:18] LABS: BUN/Creatinine Ratio 13 (6-26); Blood Urea Nitrogen 10 mg/dL (8-23); Calcium 6.3 mg/dL (8.6-10.3); Carbon Dioxide 22 mEq/L (23-29); Chloride 109 mEq/L (98-107); Glucose 89 mg/dL (70-105); Magnesium 1.4 mg/dL (1.6-2.6); Osmolality,Calculated 277 (280-300); Phosphorous 2.7 mg/dL (2.7-4.5); Potassium 3.9 mEq/L (3.5-5.1); Sodium 134 mEq/L (136-145); eGFR For African Americans > 60 (> 60); eGFR For Non-African Americans > 60 (> 60)
[2021-07-18] MEDS: Magnesium Oxide 400 MG TABLET PO SCH (09:03)
[2021-07-18] MEDS: Aspirin Enteric Coated 81 MG Tablet PO SCH (09:03)
[2021-07-18] MEDS ORDERED: Calcium Gluconate 1gm/50mL 1 GM/50 ML BAG IVPB ONE (11:42)
[2021-07-18] MEDS: Apixaban 5 MG TABLET PO SCH ×2 (11:50→20:00)
[2021-07-18] MEDS: *HR* OxyCODONE Immed Rel 15 MG TABLET PO SCH ×3 (11:50→20:01)
[2021-07-18] MEDS: levoFLOXacin 750 MG TABLET PO SCH (16:06)
[2021-07-18] MEDS: QUEtiapine Fumarate 100 MG TABLET PO SCH (20:03)
[2021-07-18] MEDS: Melatonin 3 MG TABLET PO SCH (20:03)
[2021-07-19] MEDS: Diphenoxylate/Atropine 1 TAB TABLET PO PRN (00:07)
[2021-07-19] MEDS: *HR* OxyCODONE Immed Rel 5 MG TABLET PO PRN (00:07)
[2021-07-19] MEDS: *HR* OxyCODONE Immed Rel 15 MG TABLET PO PRN ×5 (02:21→20:19)
[2021-07-19 06:50] LABS: Hematocrit 30.7 % (37.5-50.1); Hemoglobin 9.4 g/dL (12.9-16.9); Mean Corpuscular HGB Conc 30.6 g/dL (31.6-35.5); Mean Corpuscular Hemoglobin 29.9 pg (28.0-33.3); Mean Corpuscular Volume 97.8 fL (83.0-100.0); Mean Platelet Volume 10.3 fL (9.4-12.4); Platelet Count 129 K/mcL (140-400); Red Blood Count 3.14 M/mcL (4.19-5.50); Red Cell Distribution Width 15.3 % (11.5-14.5); White Blood Count 5.2 K/mcL (4.3-11.1)
[2021-07-19 07:14] LABS: Alanine Aminotransferase 19 Units/L (7-52); Albumin < 1.5 g/dL (3.5-5.7); Alkaline Phosphatase 205 Units/L (34-104); Aspartate Amino Transferase 17 Units/L (13-39); BUN/Creatinine Ratio 14 (6-26); Bilirubin,Indirect 0.2 mg/dL (0.0-1.0); Bilirubin,Total 0.2 mg/dL (0.3-1.0); Blood Urea Nitrogen 10 mg/dL (8-23); Calcium 6.6 mg/dL (8.6-10.3); Carbon Dioxide 22 mEq/L (23-29); Chloride 111 mEq/L (98-107); Glucose 98 mg/dL (70-105); Magnesium 1.5 mg/dL (1.6-2.6); Osmolality,Calculated 277 (280-300); Phosphorous 2.1 mg/dL (2.7-4.5); Potassium 4.2 mEq/L (3.5-5.1); Sodium 134 mEq/L (136-145); eGFR For African Americans > 60 (> 60); eGFR For Non-African Americans > 60 (> 60)
[2021-07-19] MEDS: Aspirin Enteric Coated 81 MG Tablet PO SCH (09:06)
[2021-07-19] MEDS: Apixaban 5 MG TABLET PO SCH ×2 (09:06→20:18)
[2021-07-19] MEDS: Magnesium Oxide 400 MG TABLET PO SCH ×2 (09:06→20:18)
[2021-07-19 09:44] LABS: VBG Ionized Calcium 1.13 mmol/L (1.15-1.35)
[2021-07-19] MEDS: levoFLOXacin 750 MG TABLET PO SCH (13:48)
[2021-07-19] MEDS: Melatonin 3 MG TABLET PO SCH (20:18)
[2021-07-19] MEDS: QUEtiapine Fumarate 100 MG TABLET PO SCH (20:18)
[2021-07-20] MEDS: *HR* OxyCODONE Immed Rel 15 MG TABLET PO PRN ×5 (00:23→18:27)
[2021-07-20 06:08] LABS: BUN/Creatinine Ratio 15 (6-26); Blood Urea Nitrogen 11 mg/dL (8-23); Calcium 7.2 mg/dL (8.6-10.3); Carbon Dioxide 19 mEq/L (23-29); Chloride 112 mEq/L (98-107); Glucose 122 mg/dL (70-105); Magnesium 1.7 mg/dL (1.6-2.6); Osmolality,Calculated 281 (280-300); Phosphorous 2.5 mg/dL (2.7-4.5); Potassium 4.4 mEq/L (3.5-5.1); Sodium 135 mEq/L (136-145); eGFR For African Americans > 60 (> 60); eGFR For Non-African Americans > 60 (> 60)
[2021-07-20] MEDS: Apixaban 5 MG TABLET PO SCH ×2 (08:30→21:37)
[2021-07-20] MEDS: Aspirin Enteric Coated 81 MG Tablet PO SCH (08:32)
[2021-07-20] MEDS: Magnesium Oxide 400 MG TABLET PO SCH ×2 (08:32→21:37)
[2021-07-20] MEDS: Morphine Sulfate ER (12 HR) 15 MG TABLET.ER PO SCH ×2 (10:56→21:37)
[2021-07-20] MEDS: levoFLOXacin 750 MG TABLET PO SCH (14:02)
[2021-07-20] MEDS: QUEtiapine Fumarate 100 MG TABLET PO SCH (21:37)
[2021-07-20] MEDS: Melatonin 3 MG TABLET PO SCH (21:37)
[2021-07-21] MEDS: *HR* OxyCODONE Immed Rel 15 MG TABLET PO PRN ×3 (00:31→21:00)
[2021-07-21] MEDS: Aspirin Enteric Coated 81 MG Tablet PO SCH (08:33)
[2021-07-21] MEDS: Morphine Sulfate ER (12 HR) 15 MG TABLET.ER PO SCH ×3 (08:34→19:52)
[2021-07-21] MEDS: Magnesium Oxide 400 MG TABLET PO SCH ×2 (08:34→19:52)
[2021-07-21] MEDS: Apixaban 5 MG TABLET PO SCH ×2 (08:34→19:51)
[2021-07-21] MEDS: hydroCHLOROthiazide 25 MG TABLET PO SCH (12:35)
[2021-07-21] MEDS: levoFLOXacin 750 MG TABLET PO SCH (15:04)
[2021-07-21] MEDS: Melatonin 3 MG TABLET PO SCH (19:52)
[2021-07-21] MEDS: QUEtiapine Fumarate 100 MG TABLET PO SCH (19:52)
[2021-07-22] MEDS: *HR* OxyCODONE Immed Rel 15 MG TABLET PO PRN ×6 (01:09→21:44)
[2021-07-22 05:59] LABS: Hematocrit 32.6 % (37.5-50.1); Hemoglobin 10.5 g/dL (12.9-16.9); Mean Corpuscular HGB Conc 32.2 g/dL (31.6-35.5); Mean Corpuscular Hemoglobin 31.6 pg (28.0-33.3); Mean Corpuscular Volume 98.2 fL (83.0-100.0); Mean Platelet Volume 10.6 fL (9.4-12.4); Platelet Count 185 K/mcL (140-400); Red Blood Count 3.32 M/mcL (4.19-5.50); Red Cell Distribution Width 15.1 % (11.5-14.5); White Blood Count 5.8 K/mcL (4.3-11.1)
[2021-07-22 06:21] LABS: BUN/Creatinine Ratio 17 (6-26); Blood Urea Nitrogen 11 mg/dL (8-23); Calcium 7.2 mg/dL (8.6-10.3); Carbon Dioxide 25 mEq/L (23-29); Chloride 105 mEq/L (98-107); Glucose 116 mg/dL (70-105); Magnesium 1.2 mg/dL (1.6-2.6); Osmolality,Calculated 276 (280-300); Phosphorous 2.8 mg/dL (2.7-4.5); Potassium 4.5 mEq/L (3.5-5.1); Sodium 133 mEq/L (136-145); eGFR For African Americans > 60 (> 60); eGFR For Non-African Americans > 60 (> 60)
[2021-07-22] MEDS: Aspirin Enteric Coated 81 MG Tablet PO SCH (09:04)
[2021-07-22] MEDS: hydroCHLOROthiazide 25 MG TABLET PO SCH (09:05)
[2021-07-22] MEDS: Morphine Sulfate ER (12 HR) 15 MG TABLET.ER PO SCH ×2 (09:05→20:34)
[2021-07-22] MEDS: Magnesium Oxide 400 MG TABLET PO SCH ×2 (09:05→20:34)
[2021-07-22] MEDS: Apixaban 5 MG TABLET PO SCH ×2 (09:05→20:34)
[2021-07-22] MEDS ORDERED: Morphine Sulfate ER (12 HR) 15 MG TABLET.ER PO ONE (09:30)
[2021-07-22] MEDS: Furosemide 40 MG/4 ML VIAL IVP SCH ×2 (12:12→17:41)
[2021-07-22] MEDS: Melatonin 3 MG TABLET PO SCH (20:34)
[2021-07-22] MEDS: QUEtiapine Fumarate 100 MG TABLET PO SCH (20:34)
[2021-07-23] MEDS: *HR* OxyCODONE Immed Rel 15 MG TABLET PO PRN ×3 (02:20→22:56)
[2021-07-23 03:12] LABS: BUN/Creatinine Ratio 20 (6-26); Blood Urea Nitrogen 15 mg/dL (8-23); Calcium 7.1 mg/dL (8.6-10.3); Carbon Dioxide 24 mEq/L (23-29); Chloride 104 mEq/L (98-107); Glucose 118 mg/dL (70-105); Magnesium 1.5 mg/dL (1.6-2.6); Osmolality,Calculated 278 (280-300); Potassium 3.8 mEq/L (3.5-5.1); Sodium 133 mEq/L (136-145); eGFR For African Americans > 60 (> 60); eGFR For Non-African Americans > 60 (> 60)
[2021-07-23] MEDS: Morphine Sulfate ER (12 HR) 15 MG TABLET.ER PO SCH ×2 (10:22→20:33)
[2021-07-23] MEDS: Diphenoxylate/Atropine 1 TAB TABLET PO PRN ×2 (10:22→18:53)
[2021-07-23] MEDS: Apixaban 5 MG TABLET PO SCH ×2 (10:22→20:33)
[2021-07-23] MEDS: Furosemide 40 MG/4 ML VIAL IVP SCH ×2 (10:23→18:19)
[2021-07-23] MEDS: Aspirin Enteric Coated 81 MG Tablet PO SCH (10:23)
[2021-07-23] MEDS: Magnesium Oxide 400 MG TABLET PO SCH ×2 (10:23→20:33)
[2021-07-23] MEDS: Albumin 25% 12.5gm/50mL 12.5 GM/50 ML IV.SOLN IVPB SCH ×3 (10:24→19:21)
[2021-07-23] MEDS: hydroCHLOROthiazide 25 MG TABLET PO SCH (10:30)
[2021-07-23] MEDS: Ondansetron 4 MG/2 ML VIAL IVP PRN (18:57)
[2021-07-23] MEDS: Melatonin 3 MG TABLET PO SCH (20:33)
[2021-07-23] MEDS: QUEtiapine Fumarate 100 MG TABLET PO SCH (20:33)
[2021-07-24] MEDS: *HR* OxyCODONE Immed Rel 15 MG TABLET PO PRN ×4 (03:36→21:41)
[2021-07-24 06:30] LABS: BUN/Creatinine Ratio 19 (6-26); Blood Urea Nitrogen 15 mg/dL (8-23); Calcium 6.8 mg/dL (8.6-10.3); Carbon Dioxide 28 mEq/L (23-29); Chloride 102 mEq/L (98-107); Glucose 103 mg/dL (70-105); Osmolality,Calculated 277 (280-300); Potassium 3.5 mEq/L (3.5-5.1); Sodium 133 mEq/L (136-145); eGFR For African Americans > 60 (> 60); eGFR For Non-African Americans > 60 (> 60)
[2021-07-24] MEDS: Aspirin Enteric Coated 81 MG Tablet PO SCH (09:16)
[2021-07-24] MEDS: Morphine Sulfate ER (12 HR) 15 MG TABLET.ER PO SCH ×2 (09:16→21:42)
[2021-07-24] MEDS: Furosemide 40 MG/4 ML VIAL IVP SCH ×2 (09:17→16:55)
[2021-07-24] MEDS: Magnesium Oxide 400 MG TABLET PO SCH ×2 (09:17→21:41)
[2021-07-24] MEDS: Albumin 25% 12.5gm/50mL 12.5 GM/50 ML IV.SOLN IVPB SCH ×2 (09:17→17:06)
[2021-07-24] MEDS: Diphenoxylate/Atropine 1 TAB TABLET PO PRN (09:17)
[2021-07-24] MEDS: Apixaban 5 MG TABLET PO SCH ×2 (09:17→21:41)
[2021-07-24] MEDS: QUEtiapine Fumarate 100 MG TABLET PO SCH (21:41)
[2021-07-24] MEDS: Melatonin 3 MG TABLET PO SCH (21:42)
[2021-07-25] MEDS: *HR* OxyCODONE Immed Rel 15 MG TABLET PO PRN ×4 (01:39→17:24)
[2021-07-25 02:26] LABS: Hematocrit 32.9 % (37.5-50.1); Hemoglobin 10.5 g/dL (12.9-16.9); Mean Corpuscular HGB Conc 31.9 g/dL (31.6-35.5); Mean Corpuscular Hemoglobin 31.3 pg (28.0-33.3); Mean Corpuscular Volume 98.2 fL (83.0-100.0); Platelet Count 270 K/mcL (140-400); Red Blood Count 3.35 M/mcL (4.19-5.50); Red Cell Distribution Width 14.8 % (11.5-14.5)
[2021-07-25 02:32] LABS: White Blood Count 9.9 K/mcL (4.3-11.1)
[2021-07-25 02:44] LABS: BUN/Creatinine Ratio 15 (6-26); Blood Urea Nitrogen 11 mg/dL (8-23); Carbon Dioxide 24 mEq/L (23-29); Chloride 103 mEq/L (98-107); Glucose 90 mg/dL (70-105); Magnesium 1.4 mg/dL (1.6-2.6); Osmolality,Calculated 277 (280-300); Phosphorous 2.5 mg/dL (2.7-4.5); Potassium 3.2 mEq/L (3.5-5.1); Sodium 134 mEq/L (136-145); eGFR For African Americans > 60 (> 60); eGFR For Non-African Americans > 60 (> 60)
[2021-07-25] MEDS: Albumin 25% 12.5gm/50mL 12.5 GM/50 ML IV.SOLN IVPB SCH (09:41)
[2021-07-25] MEDS: Furosemide 40 MG/4 ML VIAL IVP SCH (09:45)
[2021-07-25] MEDS ORDERED: Lidocaine 1% 20 ML MDV ONE (10:22)
[2021-07-25] MEDS: Diphenoxylate/Atropine 1 TAB TABLET PO PRN (12:24)
[2021-07-25] MEDS: Magnesium Oxide 400 MG TABLET PO SCH ×2 (12:25→20:44)
[2021-07-25] MEDS: Morphine Sulfate ER (12 HR) 15 MG TABLET.ER PO SCH ×2 (12:26→20:44)
[2021-07-25] MEDS: Aspirin Enteric Coated 81 MG Tablet PO SCH (12:27)
[2021-07-25] MEDS: Apixaban 5 MG TABLET PO SCH (12:27)
[2021-07-25] MEDS: Furosemide 20 MG TABLET PO SCH (17:24)
[2021-07-25] MEDS: Ondansetron 4 MG/2 ML VIAL IVP PRN (17:37)
[2021-07-25] MEDS: Melatonin 3 MG TABLET PO SCH (20:44)
[2021-07-25] MEDS: QUEtiapine Fumarate 100 MG TABLET PO SCH (20:44)
[2021-07-25] MEDS ORDERED: Prochlorperazine 10 MG/2 ML VIAL IVP PRN (22:25)
[2021-07-26 04:06] LABS: Hematocrit 31.9 % (37.5-50.1); Hemoglobin 10.2 g/dL (12.9-16.9); Mean Corpuscular Hemoglobin 30.5 pg (28.0-33.3); Mean Corpuscular Volume 95.5 fL (83.0-100.0); Platelet Count 232 K/mcL (140-400); Red Blood Count 3.34 M/mcL (4.19-5.50); Red Cell Distribution Width 14.7 % (11.5-14.5); White Blood Count 13.2 K/mcL (4.3-11.1)
[2021-07-26 04:22] LABS: Alanine Aminotransferase 18 Units/L (7-52); Albumin 1.9 g/dL (3.5-5.7); Albumin/Globulin Ratio 0.7 (1.1-2.2); Alkaline Phosphatase 205 Units/L (34-104); Aspartate Amino Transferase 18 Units/L (13-39); BUN/Creatinine Ratio 19 (6-26); Bilirubin,Direct 0.1 mg/dL (0.0-0.2); Bilirubin,Indirect 0.2 mg/dL (0.0-1.0); Bilirubin,Total 0.3 mg/dL (0.3-1.0); Blood Urea Nitrogen 15 mg/dL (8-23); Calcium 6.7 mg/dL (8.6-10.3); Carbon Dioxide 26 mEq/L (23-29); Chloride 101 mEq/L (98-107); Globulin 2.9 g/dL (2.4-3.5); Glucose 148 mg/dL (70-105); Magnesium 1.5 mg/dL (1.6-2.6); Osmolality,Calculated 282 (280-300); Phosphorous 2.7 mg/dL (2.7-4.5); Potassium 3.8 mEq/L (3.5-5.1); Sodium 134 mEq/L (136-145); Total Protein 4.8 g/dL (6.4-8.9); eGFR For African Americans > 60 (> 60); eGFR For Non-African Americans > 60 (> 60)
[2021-07-26 04:48] LABS: INR 1.9; Prothrombin Time 21.6 Seconds (9.4-12.1)
[2021-07-26] MEDS: Morphine Sulfate ER (12 HR) 15 MG TABLET.ER PO SCH ×2 (08:59→21:20)
[2021-07-26] MEDS: Diphenoxylate/Atropine 1 TAB TABLET PO PRN (08:59)
[2021-07-26] MEDS: Aspirin Enteric Coated 81 MG Tablet PO SCH (08:59)
[2021-07-26] MEDS: Magnesium Oxide 400 MG TABLET PO SCH ×2 (08:59→21:20)
[2021-07-26] MEDS: Furosemide 20 MG TABLET PO SCH (09:00)
[2021-07-26] MEDS ORDERED: *HR* OxyCODONE Immed Rel 15 MG TABLET PO PRN (11:20)
[2021-07-26] MEDS ORDERED: *HR* OxyCODONE Immed Rel 5 MG TABLET PO PRN (16:30)
[2021-07-26] MEDS: *HR* OxyCODONE Immed Rel 5 MG TABLET PO PRN (17:27)
[2021-07-26] MEDS: QUEtiapine Fumarate 100 MG TABLET PO SCH (21:20)
[2021-07-26] MEDS: Melatonin 3 MG TABLET PO SCH (21:20)
[2021-07-26] MEDS: Apixaban 5 MG TABLET PO SCH (21:20)
[2021-07-26] MEDS ORDERED: 0.9 % Sodium Chloride 500 ML IVC SCH (23:00)
[2021-07-27 03:23] LABS: Hemoglobin 9.4 g/dL (12.9-16.9); Mean Corpuscular HGB Conc 32.4 g/dL (31.6-35.5); Mean Corpuscular Hemoglobin 31.1 pg (28.0-33.3); Mean Platelet Volume 9.5 fL (9.4-12.4); Platelet Count 196 K/mcL (140-400); Red Blood Count 3.02 M/mcL (4.19-5.50); Red Cell Distribution Width 14.7 % (11.5-14.5); White Blood Count 8.3 K/mcL (4.3-11.1)
[2021-07-27 04:00] LABS: BUN/Creatinine Ratio 23 (6-26); Blood Urea Nitrogen 17 mg/dL (8-23); Calcium 6.6 mg/dL (8.6-10.3); Carbon Dioxide 27 mEq/L (23-29); Chloride 100 mEq/L (98-107); Glucose 119 mg/dL (70-105); Osmolality,Calculated 275 (280-300); Potassium 3.8 mEq/L (3.5-5.1); Sodium 131 mEq/L (136-145); eGFR For African Americans > 60 (> 60); eGFR For Non-African Americans > 60 (> 60)
[2021-07-27] MEDS: Morphine Sulfate ER (12 HR) 15 MG TABLET.ER PO SCH ×2 (07:40→21:34)
[2021-07-27] MEDS: Aspirin Enteric Coated 81 MG Tablet PO SCH (07:40)
[2021-07-27] MEDS: Apixaban 5 MG TABLET PO SCH ×2 (07:40→21:34)
[2021-07-27] MEDS: Magnesium Oxide 400 MG TABLET PO SCH ×2 (07:40→21:34)
[2021-07-27] MEDS: hydroCHLOROthiazide 25 MG TABLET PO SCH (07:50)
[2021-07-27] MEDS: Ipratropium/Albuterol Neb 3 ML IH PRN ×2 (11:44→20:45)
[2021-07-27] MEDS: QUEtiapine Fumarate 100 MG TABLET PO SCH (21:34)
[2021-07-27] MEDS: Melatonin 3 MG TABLET PO SCH (21:34)
[2021-07-27] MEDS: Ondansetron 4 MG/2 ML VIAL IVP PRN (21:34)
[2021-07-28] MEDS: *HR* OxyCODONE Immed Rel 5 MG TABLET PO PRN (03:10)
[2021-07-28] MEDS: Aspirin Enteric Coated 81 MG Tablet PO SCH (09:23)
[2021-07-28] MEDS: hydroCHLOROthiazide 25 MG TABLET PO SCH (09:23)
[2021-07-28] MEDS: Apixaban 5 MG TABLET PO SCH (09:23)
[2021-07-28] MEDS: Magnesium Oxide 400 MG TABLET PO SCH (09:23)
[2021-07-28] MEDS: Morphine Sulfate ER (12 HR) 15 MG TABLET.ER PO SCH (09:24)
[2021-07-28] MEDS: *HR* OxyCODONE Immed Rel 5 MG TABLET PO SCH (14:16)
[2021-07-28] MEDS ORDERED: *HR* OxyCODONE Immed Rel 5 MG TABLET PO SCH (15:00)
[2021-07-28] MEDS: Ipratropium/Albuterol Neb 3 ML IH PRN (15:45)
[2021-07-28 15:58] VITALS: BP 102/69; PULSE 102; TEMP 97.7; O2SAT 99
[2021-07-28 19:11] LABS: Adenovirus Not Detected (Not Detect); Bordetella Pertussis Not Detected (Not Detect); Chlamydophila pneumoniae Not Detected (Not Detect); Coronavirus 229E Not Detected (Not Detect); Coronavirus HKU1 Not Detected (Not Detect); Coronavirus NL63 Not Detected (Not Detect); Coronavirus OC43 Not Detected (Not Detect); Human Metapneumovirus Not Detected (Not Detect); Human Rhinovirus/Enterovirus Not Detected (Not Detect); Influenza A Subtype 2009 H1 Not Detected (Not Detect); Influenza B Not Detected (Not Detect); Mycoplasma pneumoniae Not Detected (Not Detect); Parainfluenza Virus 1 Not Detected (Not Detect); Parainfluenza Virus 2 Not Detected (Not Detect); Parainfluenza Virus 3 Not Detected (Not Detect); Parainfluenza Virus 4 Not Detected (Not Detect); Respiratory Syncytial Virus Not Detected (Not Detect); SARS-CoV-2 Not Detected (Not Detect)
[2021-07-29] MEDS ORDERED: Magnesium Oxide 400 MG TABLET PO SCH (09:00)
== END 2021-07-28 19:45 | disposition other institution (70) | DRG 871 ==
LOC: SUATTDRO → EMEROOARM 13:36 → 2ANU 13:36 → SUATTDRO 07-14 10:22 → 2ANU 07-25 14:32
PROVIDERS: ADMIT Pharmacist; ATTEND Student in an Organized Health Care Education/Training Program

== ENCOUNTER 2021-08-07 11:38 | Inpatient (IN) ==
[2021-08-07] MEDS ORDERED: 0.9 % Sodium Chloride 1,000 ML ONE (15:11)
[2021-08-07] MEDS ORDERED: Naloxone 0.4 MG/ML INJ IVP PRN (15:35)
[2021-08-07] MEDS ORDERED: Acetaminophen 325 MG TABLET PO PRN (15:35)
[2021-08-07] MEDS ORDERED: Ondansetron 4 MG/2 ML VIAL IVP PRN (15:35)
[2021-08-07] MEDS ORDERED: Albumin 25% 25gram/100mL 25 GM/100 ML IV.SOLN IVPB ONE (16:11)
[2021-08-07 16:25] LABS: BUN/Creatinine Ratio 27 (6-26); Blood Urea Nitrogen 36 mg/dL (8-23); Carbon Dioxide 27 mEq/L (23-29); Chloride 92 mEq/L (98-107); Glucose 107 mg/dL (70-105); Magnesium 1.7 mg/dL (1.6-2.6); Osmolality,Calculated 273 (280-300); Potassium 4.8 mEq/L (3.5-5.1); Sodium 127 mEq/L (136-145); eGFR For African Americans > 60 (> 60); eGFR For Non-African Americans 54 (> 60)
[2021-08-07 16:51] LABS: Adenovirus Not Detected (Not Detect); Bordetella Pertussis Not Detected (Not Detect); Chlamydophila pneumoniae Not Detected (Not Detect); Coronavirus 229E Not Detected (Not Detect); Coronavirus HKU1 Not Detected (Not Detect); Coronavirus NL63 Not Detected (Not Detect); Coronavirus OC43 Not Detected (Not Detect); Human Metapneumovirus Not Detected (Not Detect); Human Rhinovirus/Enterovirus Not Detected (Not Detect); Influenza A Subtype 2009 H1 Not Detected (Not Detect); Influenza B Not Detected (Not Detect); Mycoplasma pneumoniae Not Detected (Not Detect); Parainfluenza Virus 1 Not Detected (Not Detect); Parainfluenza Virus 2 Not Detected (Not Detect); Parainfluenza Virus 3 Not Detected (Not Detect); Parainfluenza Virus 4 Not Detected (Not Detect); Respiratory Syncytial Virus Not Detected (Not Detect); SARS-CoV-2 Not Detected (Not Detect)
[2021-08-07] MEDS ORDERED: 0.9 % Sodium Chloride 1,000 ML IVC ONE (16:52)
[2021-08-07] MEDS: Vancomycin 1,250 MG/262.5 ML IV.SOLN IVPB SCH (18:25)
[2021-08-07] MEDS: Calcium Gluconate 1gm/50mL 1 GM/50 ML BAG IVPB SCH ×2 (19:28→20:39)
[2021-08-07] MEDS: Piperacillin/Tazobactam 3.375 GM in 0.9 % Sodium Chloride Mini Bag 100 ML IVPB SCH (20:39)
[2021-08-07 22:48] LABS: VBG Ionized Calcium 0.94 mmol/L (1.15-1.35)
[2021-08-07 22:54] LABS: Basophils # 0.1 K/mcL (0.0-0.2); Basophils % 0.3 %; Hemoglobin 9.6 g/dL (12.9-16.9); Immature Granulocytes % 1.9 % (0-4); Lymphocytes # 1.2 K/mcL (0.6-4.6); Lymphocytes % 6.3 %; Mean Corpuscular HGB Conc 33.1 g/dL (31.6-35.5); Mean Corpuscular Hemoglobin 31.2 pg (28.0-33.3); Mean Corpuscular Volume 94.2 fL (83.0-100.0); Monocytes # 0.8 K/mcL (0.0-1.3); Monocytes % 4.1 %; Neutrophils # 16.4 K/mcL (1.6-8.9); Platelet Count 181 K/mcL (140-400); Red Blood Count 3.08 M/mcL (4.19-5.50); Red Cell Distribution Width 14.7 % (11.5-14.5); Segmented Neutrophils % 87.4 %; White Blood Count 18.7 K/mcL (4.3-11.1)
[2021-08-07 23:15] LABS: Alanine Aminotransferase 26 Units/L (7-52); Albumin 1.7 g/dL (3.5-5.7); Albumin/Globulin Ratio 0.7 (1.1-2.2); Alkaline Phosphatase 338 Units/L (34-104); Aspartate Amino Transferase 39 Units/L (13-39); BUN/Creatinine Ratio 32 (6-26); Bilirubin,Direct 0.8 mg/dL (0.0-0.2); Bilirubin,Indirect 0.3 mg/dL (0.0-1.0); Bilirubin,Total 1.1 mg/dL (0.3-1.0); Blood Urea Nitrogen 36 mg/dL (8-23); Calcium 6.2 mg/dL (8.6-10.3); Carbon Dioxide 28 mEq/L (23-29); Chloride 94 mEq/L (98-107); Globulin 2.5 g/dL (2.4-3.5); Glucose 91 mg/dL (70-105); Magnesium 1.7 mg/dL (1.6-2.6); Osmolality,Calculated 276 (280-300); Phosphorous 3.1 mg/dL (2.7-4.5); Potassium 4.4 mEq/L (3.5-5.1); Sodium 129 mEq/L (136-145); Total Protein 4.2 g/dL (6.4-8.9); eGFR For African Americans > 60 (> 60); eGFR For Non-African Americans > 60 (> 60)
[2021-08-07 23:19] LABS: Fibrinogen 219 mg/dL (169-393)
[2021-08-07 23:20] LABS: INR 2.6; Prothrombin Time 28.6 Seconds (9.4-12.1)
[2021-08-07 23:21] LABS: Activated Partial Thrombo Time 51.2 Seconds (26.0-36.0)
[2021-08-07 23:29] LABS: D-Dimer 747 ng/mLFEU (0-500)
[2021-08-07 23:30] LABS: Heparin anti-factor XA UFH > 2.00 IU/mL (0.30-0.70)
[2021-08-08] MEDS ORDERED: Clindamycin 600 MG/50 ML 600 MG/50 ML IV.SOLN IVPB SCH
[2021-08-08] MEDS: Calcium Gluconate 1gm/50mL 1 GM/50 ML BAG IVPB SCH ×2 (00:04→01:13)
[2021-08-08] MEDS: Albumin Human 5% 12.5 GM/250 ML IV.SOLN IVC SCH ×2 (00:11→01:23)
[2021-08-08 00:52] LABS: Bacteria,Urine Few per hpf (None-Few); Bilirubin,Urine Negative (Negative); Blood,Urine Large (Negative); Clarity,Urine Clear (Clear); Color,Urine Yellow (Yellow); Glucose,Urine (UA) Normal (Normal); Hyaline Casts,Urine Few per lpf (None Seen); Ketones,Urine 10 mg/dL (Negative); Leukocyte Esterase,Urine Moderate (Negative); Mucus,Urine Few per lpf (None-Few); Nitrite,Urine Negative (Negative); PH,Urine 5.5 pH Units (5.0-8.0); Protein,Urine 50 mg/dL (Neg-Trace); RBC,Urine TNTC per hpf (0-3); Specific Gravity,Urine 1.028 (1.010-1.025); Squamous Epithelial Cell,Urine Few per hpf (None-Few); Urobilinogen,Urine Normal (Normal); WBC,Urine 30-50 per hpf (0-3)
[2021-08-08] MEDS: Piperacillin/Tazobactam 3.375 GM in 0.9 % Sodium Chloride Mini Bag 100 ML IVPB SCH ×3 (03:49→21:35)
[2021-08-08 04:14] LABS: Basophils % 0.2 %; Hematocrit 27.4 % (37.5-50.1); Immature Granulocytes % 1.8 % (0-4); Lymphocytes % 6.7 %; Mean Corpuscular HGB Conc 32.8 g/dL (31.6-35.5); Mean Corpuscular Hemoglobin 31.7 pg (28.0-33.3); Mean Corpuscular Volume 96.5 fL (83.0-100.0); Mean Platelet Volume 10.5 fL (9.4-12.4); Monocytes # 0.6 K/mcL (0.0-1.3); Neutrophils # 12.5 K/mcL (1.6-8.9); Platelet Count 149 K/mcL (140-400); Red Blood Count 2.84 M/mcL (4.19-5.50); Red Cell Distribution Width 14.6 % (11.5-14.5); Segmented Neutrophils % 87.3 %; White Blood Count 14.3 K/mcL (4.3-11.1)
[2021-08-08 04:22] LABS: VBG Ionized Calcium 1.02 mmol/L (1.15-1.35)
[2021-08-08 04:34] LABS: BUN/Creatinine Ratio 34 (6-26); Blood Urea Nitrogen 34 mg/dL (8-23); Calcium 6.7 mg/dL (8.6-10.3); Carbon Dioxide 29 mEq/L (23-29); Chloride 95 mEq/L (98-107); Glucose 77 mg/dL (70-105); Magnesium 2.1 mg/dL (1.6-2.6); Osmolality,Calculated 276 (280-300); Phosphorous 2.8 mg/dL (2.7-4.5); Potassium 4.2 mEq/L (3.5-5.1); Sodium 130 mEq/L (136-145); eGFR For African Americans > 60 (> 60); eGFR For Non-African Americans > 60 (> 60)
[2021-08-08] MEDS ORDERED: *HR* Heparin 5,000 UNIT/ML VIAL IVP ONE (08:30)
[2021-08-08] MEDS ORDERED: *HR* Heparin 5,000 UNIT/ML VIAL IVP PRN ×2 (08:30)
[2021-08-08] MEDS ORDERED: Heparin 25,000 UNIT/250 ML 25,000 UNIT/250 ML IV.SOLN IVC SCH (08:30)
[2021-08-08 09:25] LABS: Hematocrit 28.4 % (37.5-50.1); Mean Corpuscular HGB Conc 31.7 g/dL (31.6-35.5); Mean Corpuscular Hemoglobin 30.5 pg (28.0-33.3); Mean Corpuscular Volume 96.3 fL (83.0-100.0); Mean Platelet Volume 10.4 fL (9.4-12.4); Platelet Count 139 K/mcL (140-400); Red Blood Count 2.95 M/mcL (4.19-5.50); Red Cell Distribution Width 14.7 % (11.5-14.5); White Blood Count 14.3 K/mcL (4.3-11.1)
[2021-08-08 09:34] LABS: INR 2.3; Prothrombin Time 25.8 Seconds (9.4-12.1)
[2021-08-08 09:41] LABS: Heparin anti-factor XA UFH 1.76 IU/mL (0.30-0.70)
[2021-08-08] MEDS ORDERED: Lidocaine -MPF 1% 5 ML AMPUL INFILT ONE (10:36)
[2021-08-08] MEDS ORDERED: Perflutren Lipid Microsphere 1.3 ML in 0.9 % Sodium Chloride 8.7 ML IVP PRN (13:51)
[2021-08-08] MEDS ORDERED: Heparin 1,000 UNITS/500 mL 500 ML ONE (14:28)
[2021-08-08] MEDS: Norepinephrine 4 MG/254 ML IV.SOLN IVC SCH (14:40)
[2021-08-08] MEDS ORDERED: Isovue-300 50ML VIAL IVP ONE (15:54)
[2021-08-08] MEDS: *HR* OxyCODONE Immed Rel 5 MG TABLET PO PRN ×2 (16:53→21:34)
[2021-08-08] MEDS: Vancomycin 1,250 MG/262.5 ML IV.SOLN IVPB SCH (17:43)
[2021-08-08] MEDS ORDERED: Bisacodyl 10 MG RECTAL SUPPOSITORY RC PRN (20:20)
[2021-08-09] MEDS: *HR* OxyCODONE Immed Rel 5 MG TABLET PO PRN ×4 (01:41→20:11)
[2021-08-09] MEDS: Piperacillin/Tazobactam 3.375 GM in 0.9 % Sodium Chloride Mini Bag 100 ML IVPB SCH ×3 (04:04→20:11)
[2021-08-09 04:36] LABS: Basophils % 0.2 %; Eosinophils % 0.1 %; Hematocrit 29.5 % (37.5-50.1); Hemoglobin 9.6 g/dL (12.9-16.9); Lymphocytes % 5.9 %; Mean Corpuscular HGB Conc 32.5 g/dL (31.6-35.5); Mean Corpuscular Hemoglobin 30.8 pg (28.0-33.3); Mean Corpuscular Volume 94.6 fL (83.0-100.0); Mean Platelet Volume 10.8 fL (9.4-12.4); Monocytes # 0.7 K/mcL (0.0-1.3); Monocytes % 4.3 %; Neutrophils # 14.6 K/mcL (1.6-8.9); Platelet Count 161 K/mcL (140-400); Red Blood Count 3.12 M/mcL (4.19-5.50); Red Cell Distribution Width 14.7 % (11.5-14.5); Segmented Neutrophils % 87.5 %; White Blood Count 16.7 K/mcL (4.3-11.1)
[2021-08-09 04:36] LABS: VBG Ionized Calcium 1.01 mmol/L (1.15-1.35)
[2021-08-09 04:50] LABS: BUN/Creatinine Ratio 39 (6-26); Blood Urea Nitrogen 26 mg/dL (8-23); Calcium 6.4 mg/dL (8.6-10.3); Carbon Dioxide 26 mEq/L (23-29); Chloride 96 mEq/L (98-107); Glucose 71 mg/dL (70-105); Magnesium 1.9 mg/dL (1.6-2.6); Osmolality,Calculated 269 (280-300); Phosphorous 1.9 mg/dL (2.7-4.5); Potassium 3.4 mEq/L (3.5-5.1); Sodium 128 mEq/L (136-145); eGFR For African Americans > 60 (> 60); eGFR For Non-African Americans > 60 (> 60)
[2021-08-09] MEDS ORDERED: Potassium Phosphate 44 MEQ in 0.9 % Sodium Chloride 250 ML IVPB ONE (07:42)
[2021-08-09] MEDS ORDERED: Acetylcysteine 10% 2 ML INHSOL IH SCH (07:45)
[2021-08-09] MEDS: Albuterol 2.5 MG/3 ML NEBULIZER IH SCH ×3 (09:50→21:46)
[2021-08-09] MEDS: Acetylcysteine 10% 2 ML INHSOL IH SCH ×3 (09:58→21:46)
[2021-08-09] MEDS ORDERED: *HR* Heparin 5,000 UNIT/ML VIAL IVP PRN ×2 (10:27)
[2021-08-09] MEDS ORDERED: *HR* Heparin 5,000 UNIT/ML VIAL IVP ONE (10:27)
[2021-08-09] MEDS ORDERED: Heparin 25,000UNIT/250ML 1/2NS 25,000 UNIT/250 ML IV.SOLN IVC SCH (10:30)
[2021-08-09] MEDS: Heparin 25,000 UNIT/250 ML 25,000 UNIT/250 ML IV.SOLN IVC SCH (13:25)
[2021-08-09] MEDS ORDERED: Isovue-370 500 ML BOTTLE IVP ONE (13:50)
[2021-08-09 14:34] LABS: INR 1.7; Prothrombin Time 18.7 Seconds (9.4-12.1)
[2021-08-09 14:36] LABS: Activated Partial Thrombo Time 44.1 Seconds (26.0-36.0)
[2021-08-09] MEDS ORDERED: *HR* FentaNYL (PF) 100 MCG/2 ML VIAL IVP PRN (16:26)
[2021-08-09 16:49] LABS: Bilirubin,Urine Negative (Negative); Blood,Urine Large (Negative); Budding Yeast,Urine Many per hpf (None Seen); Clarity,Urine Turbid (Clear); Color,Urine Yellow (Yellow); Glucose,Urine (UA) 50 mg/dL (Normal); Ketones,Urine Negative (Negative); Leukocyte Esterase,Urine Large (Negative); Mucus,Urine Few per lpf (None-Few); Nitrite,Urine Negative (Negative); Protein,Urine 50 mg/dL (Neg-Trace); RBC,Urine TNTC per hpf (0-3); Specific Gravity,Urine 1.029 (1.010-1.025); Squamous Epithelial Cell,Urine Few per hpf (None-Few); Urobilinogen,Urine Normal (Normal); WBC,Urine TNTC per hpf (0-3)
[2021-08-09] MEDS: Norepinephrine 4 MG/254 ML IV.SOLN IVC SCH (20:10)
[2021-08-09] MEDS: Vancomycin 1,250 MG/262.5 ML IV.SOLN IVPB SCH (20:11)
[2021-08-10] MEDS: *HR* OxyCODONE Immed Rel 5 MG TABLET PO PRN ×5 (00:08→22:52)
[2021-08-10] MEDS ORDERED: Albumin 25% 12.5gm/50mL 12.5 GM/50 ML IV.SOLN IVPB ONE (00:17)
[2021-08-10 01:51] LABS: Appearance of Pleural Fl Clear (Clear)
[2021-08-10 01:57] LABS: RBC,Pleural Fluid 4000 RBC/mcL
[2021-08-10 02:27] LABS: Amylase,Pleural Fluid < 10 Units/L (No Ref Range); Glucose,Pleural Fluid < 10 mg/dL (No Ref Range); LDH,Pleural Fluid > 1200 Units/L (No Ref Range); Total Protein,Pleural Fluid 2.8 g/dL
[2021-08-10 02:44] LABS: Basophils,Pleural Fluid 0 %; Eosinophils,Pleural Fluid 0 %
[2021-08-10] MEDS: Acetylcysteine 10% 2 ML INHSOL IH SCH ×4 (03:23→20:28)
[2021-08-10] MEDS: Albuterol 2.5 MG/3 ML NEBULIZER IH SCH ×4 (03:23→20:28)
[2021-08-10 03:32] LABS: Basophils % 0.1 %; Eosinophils % 0.1 %; Hematocrit 25.3 % (37.5-50.1); Hemoglobin 8.4 g/dL (12.9-16.9); Immature Granulocytes % 1.2 % (0-4); Lymphocytes # 1.2 K/mcL (0.6-4.6); Mean Corpuscular HGB Conc 33.2 g/dL (31.6-35.5); Mean Corpuscular Hemoglobin 31.3 pg (28.0-33.3); Mean Corpuscular Volume 94.4 fL (83.0-100.0); Mean Platelet Volume 10.9 fL (9.4-12.4); Monocytes # 0.7 K/mcL (0.0-1.3); Monocytes % 4.7 %; Neutrophils # 12.5 K/mcL (1.6-8.9); Platelet Count 116 K/mcL (140-400); Red Blood Count 2.68 M/mcL (4.19-5.50); Red Cell Distribution Width 14.5 % (11.5-14.5); Segmented Neutrophils % 85.9 %; White Blood Count 14.6 K/mcL (4.3-11.1)
[2021-08-10] MEDS: Piperacillin/Tazobactam 3.375 GM in 0.9 % Sodium Chloride Mini Bag 100 ML IVPB SCH ×3 (03:46→22:51)
[2021-08-10 03:55] LABS: BUN/Creatinine Ratio 39 (6-26); Blood Urea Nitrogen 16 mg/dL (8-23); Calcium 5.9 mg/dL (8.6-10.3); Carbon Dioxide 27 mEq/L (23-29); Chloride 97 mEq/L (98-107); Glucose 96 mg/dL (70-105); Lactate Dehydrogenase 356 Units/L (140-271); Magnesium 1.6 mg/dL (1.6-2.6); Osmolality,Calculated 267 (280-300); Phosphorous 1.5 mg/dL (2.7-4.5); Potassium 3.7 mEq/L (3.5-5.1); Sodium 128 mEq/L (136-145); Total Protein 4.2 g/dL (6.4-8.9); eGFR For African Americans > 60 (> 60); eGFR For Non-African Americans > 60 (> 60)
[2021-08-10] MEDS ORDERED: Calcium Gluconate 1gm/50mL 1 GM/50 ML BAG IVPB ONE (03:59)
[2021-08-10] MEDS: Norepinephrine 4 MG/254 ML IV.SOLN IVC SCH ×2 (09:09→12:44)
[2021-08-10] MEDS: Heparin 25,000 UNIT/250 ML 25,000 UNIT/250 ML IV.SOLN IVC SCH ×3 (12:27→16:11)
[2021-08-10] MEDS ORDERED: Naloxone 0.4 MG/ML INJ IVP PRN (13:19)
[2021-08-10] MEDS ORDERED: *HR* Heparin 5,000 UNIT/ML VIAL IVP PRN ×2 (13:19)
[2021-08-10] MEDS ORDERED: Acetaminophen 325 MG TABLET PO PRN (13:19)
[2021-08-10] MEDS ORDERED: Bisacodyl 10 MG RECTAL SUPPOSITORY RC PRN (13:19)
[2021-08-10] MEDS ORDERED: Ondansetron 4 MG/2 ML VIAL IVP PRN (13:19)
[2021-08-10] MEDS ORDERED: Vancomycin 1,750 MG/517.5 ML IV.SOLN IVPB SCH ×2 (15:00)
[2021-08-10] MEDS: *HR* FentaNYL (PF) 100 MCG/2 ML VIAL IVP PRN ×3 (15:15→23:48)
[2021-08-10] MEDS ORDERED: Vancomycin 1,500 MG/265 ML IV.SOLN IVPB SCH (18:00)
[2021-08-10] MEDS: Alteplase (Cathflo) 10 MG in 0.9 % Sodium Chloride 30 ML IX ONE ×2 (18:45→22:20)
[2021-08-11] MEDS: Calcium Gluconate 1gm/50mL 1 GM/50 ML BAG IVPB SCH ×4 (01:59→15:26)
[2021-08-11] MEDS ORDERED: Morphine Sulfate 2 MG/ML SYRINGE IVP ONE (02:21)
[2021-08-11] MEDS: *HR* OxyCODONE Immed Rel 5 MG TABLET PO PRN ×3 (02:42→18:28)
[2021-08-11] MEDS: Acetylcysteine 10% 2 ML INHSOL IH SCH ×4 (03:43→21:30)
[2021-08-11] MEDS: Albuterol 2.5 MG/3 ML NEBULIZER IH SCH ×4 (03:43→21:30)
[2021-08-11] MEDS: *HR* FentaNYL (PF) 100 MCG/2 ML VIAL IVP PRN (03:50)
[2021-08-11] MEDS: Piperacillin/Tazobactam 3.375 GM in 0.9 % Sodium Chloride Mini Bag 100 ML IVPB SCH ×3 (03:50→21:51)
[2021-08-11] MEDS ORDERED: 0.9 % Sodium Chloride 500 ML IVC ONE (08:06)
[2021-08-11 09:53] LABS: Platelet Count 152 K/mcL (140-400)
[2021-08-11 09:54] LABS: Hematocrit 31.1 % (37.5-50.1); Hemoglobin 10.3 g/dL (12.9-16.9); Mean Corpuscular HGB Conc 33.1 g/dL (31.6-35.5); Mean Corpuscular Hemoglobin 31.1 pg (28.0-33.3); Mean Platelet Volume 11.3 fL (9.4-12.4); Red Blood Count 3.31 M/mcL (4.19-5.50); Red Cell Distribution Width 14.6 % (11.5-14.5); White Blood Count 25.8 K/mcL (4.3-11.1)
[2021-08-11 10:10] LABS: BUN/Creatinine Ratio 36 (6-26); Blood Urea Nitrogen 16 mg/dL (8-23); Calcium 5.8 mg/dL (8.6-10.3); Carbon Dioxide 24 mEq/L (23-29); Chloride 97 mEq/L (98-107); Glucose 128 mg/dL (70-105); Osmolality,Calculated 267 (280-300); Potassium 3.5 mEq/L (3.5-5.1); Sodium 127 mEq/L (136-145); eGFR For African Americans > 60 (> 60); eGFR For Non-African Americans > 60 (> 60)
[2021-08-11 12:19] LABS: Monocytes # 1.6 K/mcL (0.0-1.3); Neutrophils # 24.3 K/mcL (1.6-8.9)
[2021-08-11] MEDS ORDERED: 0.9 % Sodium Chloride 1,000 ML IV ONE (12:48)
[2021-08-11] MEDS: Albumin Human 5% 12.5 GM/250 ML IV.SOLN IVC SCH ×2 (12:50→18:27)
[2021-08-11] MEDS ORDERED: Albumin 25% 25gram/100mL 0 GM/0 ML IV.SOLN ONE (13:03)
[2021-08-11 13:04] LABS: Platelet Estimate Normal (Normal)
[2021-08-11] MEDS ORDERED: Albumin Human 5% 12.5 GM/250 ML IV.SOLN ONE (13:15)
[2021-08-11] MEDS: Morphine Sulfate ER (12 HR) 15 MG TABLET.ER PO SCH ×2 (15:44→21:43)
[2021-08-11] MEDS: Vancomycin 1,250 MG/262.5 ML IV.SOLN IVPB SCH (16:15)
[2021-08-11] MEDS: Norepinephrine 4 MG/254 ML IV.SOLN IVC SCH (17:33)
[2021-08-11] MEDS ORDERED: 0.9 % Sodium Chloride 1,000 ML IVC SCH (17:45)
[2021-08-11] MEDS: *HR* Enoxaparin 80 MG/0.8 ML SYRINGE SQ SCH (18:27)
[2021-08-12] MEDS: Albumin 25% 25gram/100mL 25 GM/100 ML IV.SOLN IVPB SCH ×4 (00:18→17:35)
[2021-08-12] MEDS: 0.9 % Sodium Chloride 1,000 ML IVC SCH ×2 (00:34→13:59)
[2021-08-12] MEDS: *HR* OxyCODONE Immed Rel 5 MG TABLET PO PRN ×2 (00:34→05:07)
[2021-08-12 02:00] LABS: Fluid Source for Triglycerides PLEURAL FLUID
[2021-08-12] MEDS: Albuterol 2.5 MG/3 ML NEBULIZER IH SCH ×4 (03:50→20:38)
[2021-08-12] MEDS: Acetylcysteine 10% 2 ML INHSOL IH SCH ×4 (03:51→20:38)
[2021-08-12] MEDS: Vancomycin 1,250 MG/262.5 ML IV.SOLN IVPB SCH ×2 (05:01→17:58)
[2021-08-12] MEDS: *HR* Enoxaparin 80 MG/0.8 ML SYRINGE SQ SCH (05:06)
[2021-08-12] MEDS: Piperacillin/Tazobactam 3.375 GM in 0.9 % Sodium Chloride Mini Bag 100 ML IVPB SCH ×3 (05:07→20:24)
[2021-08-12 06:16] LABS: BUN/Creatinine Ratio 36 (6-26); Blood Urea Nitrogen 10 mg/dL (8-23); Calcium 5.4 mg/dL (8.6-10.3); Carbon Dioxide 24 mEq/L (23-29); Chloride 106 mEq/L (98-107); Glucose 100 mg/dL (70-105); Magnesium 1.6 mg/dL (1.6-2.6); Osmolality,Calculated 275 (280-300); Phosphorous < 1.0 mg/dL (2.7-4.5); Potassium 2.5 mEq/L (3.5-5.1); Sodium 133 mEq/L (136-145); eGFR For African Americans > 60 (> 60); eGFR For Non-African Americans > 60 (> 60)
[2021-08-12] MEDS ORDERED: Magnesium Sulfate 1 GM/102 ML PIGGYBACK IVPB ONE (07:07)
[2021-08-12] MEDS ORDERED: Potassium Phosphate 44 MEQ in 0.9 % Sodium Chloride 250 ML IVPB ONE (07:32)
[2021-08-12] MEDS: Calcium Gluconate 1gm/50mL 1 GM/50 ML BAG IVPB SCH ×2 (08:43→10:11)
[2021-08-12] MEDS: Morphine Sulfate ER (12 HR) 15 MG TABLET.ER PO SCH ×2 (08:45→20:24)
[2021-08-12 11:25] LABS: Basophils % 0.1 %; Eosinophils % 0.1 %; Mean Corpuscular Volume 97.7 fL (83.0-100.0)
[2021-08-12 11:27] LABS: Hematocrit 17.2 % (37.5-50.1); Immature Granulocytes % 1.2 % (0-4); Immature Platelets 8.4 % (1.1-6.1); Lymphocytes # 0.8 K/mcL (0.6-4.6); Lymphocytes % 7.3 %; Mean Corpuscular HGB Conc 31.4 g/dL (31.6-35.5); Mean Corpuscular Hemoglobin 30.7 pg (28.0-33.3); Mean Platelet Volume 11.3 fL (9.4-12.4); Monocytes # 0.6 K/mcL (0.0-1.3); Red Blood Count 1.76 M/mcL (4.19-5.50); Red Cell Distribution Width 14.8 % (11.5-14.5); Segmented Neutrophils % 85.3 %; White Blood Count 10.5 K/mcL (4.3-11.1)
[2021-08-12 12:03] LABS: Hemoglobin 5.4 g/dL (12.9-16.9); Platelet Count 79 K/mcL (140-400)
[2021-08-12 12:05] LABS: Platelet Estimate Decreased (Normal)
[2021-08-12] MEDS: Norepinephrine 4 MG/254 ML IV.SOLN IVC SCH (13:51)
[2021-08-12] MEDS: Pantoprazole 40 MG VIAL IVP SCH ×2 (13:58→17:57)
[2021-08-12 14:14] LABS: Fluid Source for Cholesterol PLEURAL FLUID
[2021-08-12 14:40] LABS: INR 1.6; Prothrombin Time 17.5 Seconds (9.4-12.1)
[2021-08-12 15:29] LABS: Cholesterol,Body Fluid 28 mg/dL; Triglycerides,Body Fluid 52 mg/dL
[2021-08-12 16:29] LABS: BUN/Creatinine Ratio 29 (6-26); Blood Urea Nitrogen 9 mg/dL (8-23); Carbon Dioxide 25 mEq/L (23-29); Chloride 106 mEq/L (98-107); Glucose 170 mg/dL (70-105); Magnesium 1.8 mg/dL (1.6-2.6); Osmolality,Calculated 281 (280-300); Phosphorous 1.7 mg/dL (2.7-4.5); Potassium 3.2 mEq/L (3.5-5.1); Sodium 134 mEq/L (136-145); eGFR For African Americans > 60 (> 60); eGFR For Non-African Americans > 60 (> 60)
[2021-08-12] MEDS ORDERED: 0.9 % Sodium Chloride 250 ML ONE (16:51)
[2021-08-12] MEDS: Calcium Gluconate 1gm/50mL 1 GM/50 ML BAG IVPB PRN (17:34)
[2021-08-12] MEDS: *HR* FentaNYL (PF) 100 MCG/2 ML VIAL IVP PRN (19:02)
[2021-08-12 21:03] LABS: VBG Ionized Calcium 1.04 mmol/L (1.15-1.35)
[2021-08-12 21:19] LABS: BUN/Creatinine Ratio 28 (6-26); Blood Urea Nitrogen 8 mg/dL (8-23); Calcium 6.5 mg/dL (8.6-10.3); Carbon Dioxide 24 mEq/L (23-29); Chloride 106 mEq/L (98-107); Glucose 111 mg/dL (70-105); Osmolality,Calculated 277 (280-300); Phosphorous 1.6 mg/dL (2.7-4.5); Potassium 3.7 mEq/L (3.5-5.1); Sodium 134 mEq/L (136-145); eGFR For African Americans > 60 (> 60); eGFR For Non-African Americans > 60 (> 60)
[2021-08-12 21:29] LABS: Fluid Source for Albumin PLEURAL FLUID
[2021-08-12 23:44] LABS: VBG Ionized Calcium 1.05 mmol/L (1.15-1.35)
[2021-08-12 23:59] LABS: Magnesium 1.9 mg/dL (1.6-2.6); Phosphorous 1.5 mg/dL (2.7-4.5); Potassium 3.7 mEq/L (3.5-5.1)
[2021-08-13] MEDS: Albumin 25% 25gram/100mL 25 GM/100 ML IV.SOLN IVPB SCH ×4 (00:12→23:50)
[2021-08-13] MEDS: Calcium Gluconate 1gm/50mL 1 GM/50 ML BAG IVPB PRN ×2 (00:12→20:14)
[2021-08-13 01:36] LABS: Hematocrit 22.6 % (37.5-50.1)
[2021-08-13 01:37] LABS: Hemoglobin 7.4 g/dL (12.9-16.9)
[2021-08-13] MEDS: Vancomycin 1,250 MG/262.5 ML IV.SOLN IVPB SCH ×2 (02:52→16:16)
[2021-08-13] MEDS: Albuterol 2.5 MG/3 ML NEBULIZER IH SCH ×4 (04:07→22:57)
[2021-08-13] MEDS: Acetylcysteine 10% 2 ML INHSOL IH SCH ×4 (04:08→22:58)
[2021-08-13] MEDS: Pantoprazole 40 MG VIAL IVP SCH ×2 (04:49→16:12)
[2021-08-13] MEDS: Piperacillin/Tazobactam 3.375 GM in 0.9 % Sodium Chloride Mini Bag 100 ML IVPB SCH ×3 (04:50→20:13)
[2021-08-13 05:50] LABS: Basophils % 0.1 %
[2021-08-13 05:52] LABS: Hematocrit 22.1 % (37.5-50.1); Hemoglobin 7.2 g/dL (12.9-16.9); Immature Granulocytes % 1.1 % (0-4); Immature Platelets 6.9 % (1.1-6.1); Lymphocytes # 1.1 K/mcL (0.6-4.6); Lymphocytes % 11.4 %; Mean Corpuscular HGB Conc 32.6 g/dL (31.6-35.5); Mean Corpuscular Hemoglobin 30.5 pg (28.0-33.3); Mean Corpuscular Volume 93.6 fL (83.0-100.0); Mean Platelet Volume 11.1 fL (9.4-12.4); Monocytes # 0.6 K/mcL (0.0-1.3); Monocytes % 5.6 %; Red Blood Count 2.36 M/mcL (4.19-5.50); Red Cell Distribution Width 14.7 % (11.5-14.5); Segmented Neutrophils % 81.8 %; White Blood Count 9.8 K/mcL (4.3-11.1)
[2021-08-13 05:58] LABS: BUN/Creatinine Ratio 23 (6-26); Blood Urea Nitrogen 7 mg/dL (8-23); Calcium 6.7 mg/dL (8.6-10.3); Carbon Dioxide 25 mEq/L (23-29); Chloride 107 mEq/L (98-107); Glucose 88 mg/dL (70-105); Magnesium 1.9 mg/dL (1.6-2.6); Osmolality,Calculated 279 (280-300); Phosphorous 1.5 mg/dL (2.7-4.5); Potassium 4.1 mEq/L (3.5-5.1); Sodium 136 mEq/L (136-145); eGFR For African Americans > 60 (> 60); eGFR For Non-African Americans > 60 (> 60)
[2021-08-13 06:07] LABS: Platelet Count 86 K/mcL (140-400)
[2021-08-13 07:37] LABS: VBG Ionized Calcium 1.05 mmol/L (1.15-1.35)
[2021-08-13] MEDS: Morphine Sulfate ER (12 HR) 15 MG TABLET.ER PO SCH ×2 (08:04→20:14)
[2021-08-13] MEDS: Norepinephrine 4 MG/254 ML IV.SOLN IVC SCH ×3 (08:10→12:13)
[2021-08-13 12:35] LABS: Magnesium 2.2 mg/dL (1.6-2.6); Phosphorous 2.5 mg/dL (2.7-4.5)
[2021-08-13] MEDS: *HR* FentaNYL (PF) 100 MCG/2 ML VIAL IVP PRN (16:35)
[2021-08-13] MEDS: *HR* OxyCODONE Immed Rel 5 MG TABLET PO PRN (23:52)
[2021-08-14] MEDS: Vancomycin 1,250 MG/262.5 ML IV.SOLN IVPB SCH ×2 (02:35→15:17)
[2021-08-14 03:07] LABS: VBG Ionized Calcium 0.99 mmol/L (1.15-1.35)
[2021-08-14 03:15] LABS: Basophils % 0.1 %; Hemoglobin 6.6 g/dL (12.9-16.9)
[2021-08-14 03:17] LABS: Hematocrit 20.7 % (37.5-50.1); Immature Granulocytes % 1.6 % (0-4); Immature Platelets 6.7 % (1.1-6.1); Lymphocytes # 0.9 K/mcL (0.6-4.6); Mean Corpuscular HGB Conc 31.9 g/dL (31.6-35.5); Mean Corpuscular Hemoglobin 30.3 pg (28.0-33.3); Mean Platelet Volume 11.5 fL (9.4-12.4); Monocytes # 0.6 K/mcL (0.0-1.3); Monocytes % 5.7 %; Neutrophils # 8.6 K/mcL (1.6-8.9); Nucleated Red Blood Cells 0.2 /100 WBC (0); Red Blood Count 2.18 M/mcL (4.19-5.50); Red Cell Distribution Width 15.2 % (11.5-14.5); Segmented Neutrophils % 83.6 %; White Blood Count 10.3 K/mcL (4.3-11.1)
[2021-08-14 03:19] LABS: Platelet Count 92 K/mcL (140-400)
[2021-08-14 03:25] LABS: BUN/Creatinine Ratio 13 (6-26); Blood Urea Nitrogen 4 mg/dL (8-23); Calcium 6.5 mg/dL (8.6-10.3); Carbon Dioxide 24 mEq/L (23-29); Chloride 106 mEq/L (98-107); Glucose 80 mg/dL (70-105); Magnesium 1.9 mg/dL (1.6-2.6); Osmolality,Calculated 278 (280-300); Phosphorous 2.5 mg/dL (2.7-4.5); Potassium 3.3 mEq/L (3.5-5.1); Sodium 136 mEq/L (136-145); eGFR For African Americans > 60 (> 60); eGFR For Non-African Americans > 60 (> 60)
[2021-08-14] MEDS: *HR* FentaNYL (PF) 100 MCG/2 ML VIAL IVP PRN ×4 (03:43→21:54)
[2021-08-14] MEDS: Piperacillin/Tazobactam 3.375 GM in 0.9 % Sodium Chloride Mini Bag 100 ML IVPB SCH ×3 (03:44→20:31)
[2021-08-14] MEDS: Acetylcysteine 10% 2 ML INHSOL IH SCH (03:45)
[2021-08-14] MEDS: Albuterol 2.5 MG/3 ML NEBULIZER IH SCH ×4 (03:45→22:16)
[2021-08-14] MEDS: Pantoprazole 40 MG VIAL IVP SCH ×2 (04:31→17:22)
[2021-08-14] MEDS: Calcium Gluconate 1gm/50mL 1 GM/50 ML BAG IVPB PRN ×2 (04:31→15:18)
[2021-08-14] MEDS: Morphine Sulfate ER (12 HR) 15 MG TABLET.ER PO SCH ×2 (08:12→20:31)
[2021-08-14] MEDS: Albumin 25% 25gram/100mL 25 GM/100 ML IV.SOLN IVPB SCH ×2 (08:12→15:17)
[2021-08-14 10:55] LABS: Magnesium 2.1 mg/dL (1.6-2.6); Phosphorous 2.2 mg/dL (2.7-4.5); Potassium 3.7 mEq/L (3.5-5.1)
[2021-08-14] MEDS ORDERED: 0.9 % Sodium Chloride 250 ML ONE (10:59)
[2021-08-14] MEDS: Norepinephrine 4 MG/254 ML IV.SOLN IVC SCH (11:01)
[2021-08-14] MEDS: *HR* OxyCODONE Immed Rel 5 MG TABLET PO PRN ×2 (11:13→15:17)
[2021-08-14] MEDS ORDERED: Alteplase (Cathflo) 10 MG in 0.9 % Sodium Chloride 30 ML IX ONE (11:30)
[2021-08-14] MEDS ORDERED: Furosemide 20 MG/2 ML VIAL IVP SCH (16:11)
[2021-08-14] MEDS: Furosemide 20 MG/2 ML VIAL IVP SCH (17:23)
[2021-08-14 17:50] LABS: Hematocrit 25.8 % (37.5-50.1); Hemoglobin 8.6 g/dL (12.9-16.9)
[2021-08-15] MEDS: Albumin 25% 25gram/100mL 25 GM/100 ML IV.SOLN IVPB SCH ×3 (00:12→15:42)
[2021-08-15] MEDS: *HR* OxyCODONE Immed Rel 5 MG TABLET PO PRN ×3 (00:12→15:44)
[2021-08-15] MEDS: Albuterol 2.5 MG/3 ML NEBULIZER IH SCH ×4 (03:42→20:02)
[2021-08-15] MEDS: Piperacillin/Tazobactam 3.375 GM in 0.9 % Sodium Chloride Mini Bag 100 ML IVPB SCH ×3 (03:47→20:03)
[2021-08-15] MEDS: *HR* FentaNYL (PF) 100 MCG/2 ML VIAL IVP PRN ×2 (03:47→20:04)
[2021-08-15] MEDS: Vancomycin 1,250 MG/262.5 ML IV.SOLN IVPB SCH (03:51)
[2021-08-15 03:58] LABS: Basophils % 0.1 %; Hematocrit 25.9 % (37.5-50.1); Hemoglobin 8.5 g/dL (12.9-16.9); Immature Granulocytes % 0.9 % (0-4); Lymphocytes # 1.1 K/mcL (0.6-4.6); Mean Corpuscular HGB Conc 32.8 g/dL (31.6-35.5); Mean Corpuscular Hemoglobin 30.9 pg (28.0-33.3); Mean Corpuscular Volume 94.2 fL (83.0-100.0); Mean Platelet Volume 10.1 fL (9.4-12.4); Monocytes # 0.8 K/mcL (0.0-1.3); Monocytes % 6.6 %; Neutrophils # 10.1 K/mcL (1.6-8.9); Platelet Count 101 K/mcL (140-400); Red Blood Count 2.75 M/mcL (4.19-5.50); Red Cell Distribution Width 15.5 % (11.5-14.5); Segmented Neutrophils % 83.4 %; White Blood Count 12.1 K/mcL (4.3-11.1)
[2021-08-15 04:07] LABS: VBG Ionized Calcium 0.98 mmol/L (1.15-1.35)
[2021-08-15 04:19] LABS: BUN/Creatinine Ratio 12 (6-26); Blood Urea Nitrogen 4 mg/dL (8-23); Calcium 6.5 mg/dL (8.6-10.3); Carbon Dioxide 26 mEq/L (23-29); Chloride 108 mEq/L (98-107); Glucose 91 mg/dL (70-105); Magnesium 1.7 mg/dL (1.6-2.6); Osmolality,Calculated 272 (280-300); Sodium 133 mEq/L (136-145); eGFR For African Americans > 60 (> 60); eGFR For Non-African Americans > 60 (> 60)
[2021-08-15] MEDS: Pantoprazole 40 MG VIAL IVP SCH ×2 (06:06→17:56)
[2021-08-15] MEDS: Calcium Gluconate 1gm/50mL 1 GM/50 ML BAG IVPB PRN ×3 (06:06→20:03)
[2021-08-15] MEDS: Morphine Sulfate ER (12 HR) 15 MG TABLET.ER PO SCH ×3 (08:05→17:55)
[2021-08-15] MEDS: Furosemide 20 MG/2 ML VIAL IVP SCH ×2 (08:06→09:19)
[2021-08-15] MEDS: Artificial Tears SOLN 15 ML BOTTLE BOTH EYES PRN ×2 (10:37→20:02)
[2021-08-15 10:44] LABS: Magnesium 1.9 mg/dL (1.6-2.6); Potassium 3.2 mEq/L (3.5-5.1)
[2021-08-15] MEDS ORDERED: Vancomycin 1,250 MG/262.5 ML IV.SOLN IVPB SCH (17:00)
[2021-08-15 18:08] LABS: VBG Ionized Calcium 1.05 mmol/L (1.15-1.35)
[2021-08-15 18:22] LABS: BUN/Creatinine Ratio 11 (6-26); Blood Urea Nitrogen 4 mg/dL (8-23); Calcium 7.1 mg/dL (8.6-10.3); Carbon Dioxide 25 mEq/L (23-29); Chloride 110 mEq/L (98-107); Glucose 115 mg/dL (70-105); Osmolality,Calculated 270 (280-300); Potassium 3.7 mEq/L (3.5-5.1); Sodium 131 mEq/L (136-145); eGFR For African Americans > 60 (> 60); eGFR For Non-African Americans > 60 (> 60)
[2021-08-16] MEDS: Albumin 25% 25gram/100mL 25 GM/100 ML IV.SOLN IVPB SCH ×3 (00:43→15:51)
[2021-08-16] MEDS: *HR* OxyCODONE Immed Rel 5 MG TABLET PO PRN ×3 (00:45→14:44)
[2021-08-16] MEDS: Morphine Sulfate ER (12 HR) 15 MG TABLET.ER PO SCH ×4 (03:11→22:45)
[2021-08-16] MEDS: Piperacillin/Tazobactam 3.375 GM in 0.9 % Sodium Chloride Mini Bag 100 ML IVPB SCH ×3 (03:11→19:34)
[2021-08-16 03:36] LABS: Basophils % 0.1 %; Eosinophils % 0.1 %; Lymphocytes % 10.1 %; Mean Platelet Volume 10.4 fL (9.4-12.4); Red Cell Distribution Width 15.8 % (11.5-14.5)
[2021-08-16 03:38] LABS: Hematocrit 23.1 % (37.5-50.1); Hemoglobin 7.5 g/dL (12.9-16.9); Immature Granulocytes % 0.7 % (0-4); Immature Platelets 5.2 % (1.1-6.1); Lymphocytes # 0.9 K/mcL (0.6-4.6); Mean Corpuscular HGB Conc 32.5 g/dL (31.6-35.5); Mean Corpuscular Hemoglobin 30.7 pg (28.0-33.3); Mean Corpuscular Volume 94.7 fL (83.0-100.0); Monocytes # 0.5 K/mcL (0.0-1.3); Monocytes % 5.4 %; Neutrophils # 7.2 K/mcL (1.6-8.9); Platelet Count 112 K/mcL (140-400); Red Blood Count 2.44 M/mcL (4.19-5.50); Segmented Neutrophils % 83.6 %; White Blood Count 8.6 K/mcL (4.3-11.1)
[2021-08-16 03:53] LABS: Calcium 6.9 mg/dL (8.6-10.3); Carbon Dioxide 24 mEq/L (23-29); Chloride 108 mEq/L (98-107); Glucose 91 mg/dL (70-105); Magnesium 2.2 mg/dL (1.6-2.6); Phosphorous 1.9 mg/dL (2.7-4.5); Potassium 3.6 mEq/L (3.5-5.1); Sodium 135 mEq/L (136-145); eGFR For African Americans > 60 (> 60); eGFR For Non-African Americans > 60 (> 60)
[2021-08-16 03:57] LABS: BUN/Creatinine Ratio 13 (6-26); Blood Urea Nitrogen 4 mg/dL (8-23); Osmolality,Calculated 276 (280-300)
[2021-08-16] MEDS: Albuterol 2.5 MG/3 ML NEBULIZER IH SCH ×4 (04:30→19:49)
[2021-08-16] MEDS ORDERED: Potassium Phosphate 44 MEQ in 0.9 % Sodium Chloride 250 ML IVPB ONE (05:10)
[2021-08-16] MEDS: *HR* FentaNYL (PF) 100 MCG/2 ML VIAL IVP PRN ×5 (05:46→19:35)
[2021-08-16] MEDS: Pantoprazole 40 MG VIAL IVP SCH ×2 (05:47→16:44)
[2021-08-16] MEDS: Artificial Tears SOLN 15 ML BOTTLE BOTH EYES PRN ×2 (05:48→08:26)
[2021-08-16 10:09] LABS: ABG Ionized Calcium 0.79 mmol/L (1.15-1.35)
[2021-08-16] MEDS ORDERED: Morphine Sulfate ER (12 HR) 15 MG TABLET.ER PO SCH (10:32)
[2021-08-16 11:22] LABS: VBG Ionized Calcium 1.01 mmol/L (1.15-1.35)
[2021-08-16] MEDS: Calcium Gluconate 1gm/50mL 1 GM/50 ML BAG IVPB PRN (11:37)
[2021-08-16] MEDS ORDERED: *HR* FentaNYL (PF) 100 MCG/2 ML VIAL ONE (13:11)
[2021-08-16] MEDS ORDERED: *HR* Midazolam HCl 5 MG/5 ML VIAL IVP ONE (13:12)
[2021-08-16] MEDS ORDERED: LIDOCAINE INFILT ONE (13:26)
[2021-08-16] MEDS ORDERED: EPI INFILT ONE (13:26)
[2021-08-16] MEDS ORDERED: Lidocaine/EPI 1:200k 2% PF 10 ML VIAL INFILT ONE (13:45)
[2021-08-17] MEDS: *HR* FentaNYL (PF) 100 MCG/2 ML VIAL IVP PRN ×5 (00:12→20:17)
[2021-08-17] MEDS: Albumin 25% 25gram/100mL 25 GM/100 ML IV.SOLN IVPB SCH ×4 (00:12→23:04)
[2021-08-17] MEDS: Artificial Tears SOLN 15 ML BOTTLE BOTH EYES PRN ×2 (00:13→21:19)
[2021-08-17] MEDS: Albuterol 2.5 MG/3 ML NEBULIZER IH SCH ×4 (03:39→20:00)
[2021-08-17 04:09] LABS: Basophils % 0.1 %; Eosinophils % 0.2 %; Hematocrit 23.9 % (37.5-50.1); Hemoglobin 7.6 g/dL (12.9-16.9); Immature Granulocytes % 1.3 % (0-4); Lymphocytes # 0.8 K/mcL (0.6-4.6); Lymphocytes % 8.9 %; Mean Corpuscular HGB Conc 31.8 g/dL (31.6-35.5); Mean Corpuscular Volume 97.6 fL (83.0-100.0); Mean Platelet Volume 10.6 fL (9.4-12.4); Monocytes # 0.5 K/mcL (0.0-1.3); Monocytes % 5.9 %; Neutrophils # 7.2 K/mcL (1.6-8.9); Platelet Count 103 K/mcL (140-400); Red Blood Count 2.45 M/mcL (4.19-5.50); Red Cell Distribution Width 15.9 % (11.5-14.5); Segmented Neutrophils % 83.6 %; White Blood Count 8.7 K/mcL (4.3-11.1)
[2021-08-17] MEDS: Pantoprazole 40 MG VIAL IVP SCH ×2 (04:20→17:07)
[2021-08-17] MEDS: Piperacillin/Tazobactam 3.375 GM in 0.9 % Sodium Chloride Mini Bag 100 ML IVPB SCH ×3 (04:20→20:17)
[2021-08-17 04:28] LABS: BUN/Creatinine Ratio 11 (6-26); Blood Urea Nitrogen 4 mg/dL (8-23); Calcium 7.3 mg/dL (8.6-10.3); Carbon Dioxide 24 mEq/L (23-29); Chloride 109 mEq/L (98-107); Glucose 67 mg/dL (70-105); Magnesium 2.1 mg/dL (1.6-2.6); Osmolality,Calculated 271 (280-300); Phosphorous 2.6 mg/dL (2.7-4.5); Potassium 4.2 mEq/L (3.5-5.1); Sodium 133 mEq/L (136-145); eGFR For African Americans > 60 (> 60); eGFR For Non-African Americans > 60 (> 60)
[2021-08-17] MEDS: Morphine Sulfate ER (12 HR) 15 MG TABLET.ER PO SCH ×3 (06:42→23:05)
[2021-08-17] MEDS: *HR* OxyCODONE Immed Rel 5 MG TABLET PO PRN ×3 (11:59→21:18)
[2021-08-17 14:53] LABS: Glucose,Pleural Fluid < 10 mg/dL (No Ref Range); LDH,Pleural Fluid > 1200 Units/L (No Ref Range); Total Protein,Pleural Fluid 3.3 g/dL
[2021-08-17 16:08] LABS: Appearance of Pleural Fl Bloody (Clear)
[2021-08-17 16:10] LABS: Basophils,Pleural Fluid 0 %; Eosinophils,Pleural Fluid 0 %; Monocytes,Pleural Fluid 0 %
[2021-08-17] MEDS ORDERED: *HR* FentaNYL (PF) 100 MCG/2 ML VIAL IVP ONE (16:50)
[2021-08-18] MEDS: *HR* FentaNYL (PF) 100 MCG/2 ML VIAL IVP PRN ×5 (01:33→20:01)
[2021-08-18] MEDS: *HR* OxyCODONE Immed Rel 5 MG TABLET PO PRN ×2 (03:52→07:42)
[2021-08-18] MEDS: Artificial Tears SOLN 15 ML BOTTLE BOTH EYES PRN (03:52)
[2021-08-18] MEDS: Piperacillin/Tazobactam 3.375 GM in 0.9 % Sodium Chloride Mini Bag 100 ML IVPB SCH ×3 (03:53→19:48)
[2021-08-18] MEDS: Albuterol 2.5 MG/3 ML NEBULIZER IH SCH ×4 (04:25→21:39)
[2021-08-18] MEDS: Pantoprazole 40 MG VIAL IVP SCH ×2 (05:02→19:00)
[2021-08-18] MEDS: Morphine Sulfate ER (12 HR) 15 MG TABLET.ER PO SCH ×3 (06:40→23:23)
[2021-08-18] MEDS: Albumin 25% 25gram/100mL 25 GM/100 ML IV.SOLN IVPB SCH ×3 (07:42→23:24)
[2021-08-18 08:26] LABS: VBG Ionized Calcium 1.11 mmol/L (1.15-1.35)
[2021-08-18 08:41] LABS: Basophils % 0.3 %; Eosinophils % 0.1 %; Hematocrit 27.4 % (37.5-50.1); Hemoglobin 8.4 g/dL (12.9-16.9); Immature Granulocytes % 0.7 % (0-4); Lymphocytes # 0.9 K/mcL (0.6-4.6); Lymphocytes % 7.9 %; Mean Corpuscular HGB Conc 30.7 g/dL (31.6-35.5); Mean Corpuscular Volume 97.9 fL (83.0-100.0); Mean Platelet Volume 10.8 fL (9.4-12.4); Monocytes # 0.6 K/mcL (0.0-1.3); Monocytes % 5.3 %; Neutrophils # 9.8 K/mcL (1.6-8.9); Platelet Count 125 K/mcL (140-400); Red Cell Distribution Width 15.9 % (11.5-14.5); Segmented Neutrophils % 85.7 %; White Blood Count 11.5 K/mcL (4.3-11.1)
[2021-08-18 08:50] LABS: Magnesium 1.9 mg/dL (1.6-2.6); Phosphorous 2.1 mg/dL (2.7-4.5); Potassium 4.2 mEq/L (3.5-5.1)
[2021-08-18 08:53] LABS: Alanine Aminotransferase 17 Units/L (7-52); Albumin 3.6 g/dL (3.5-5.7); Albumin/Globulin Ratio 1.9 (1.1-2.2); Alkaline Phosphatase 193 Units/L (34-104); Aspartate Amino Transferase 21 Units/L (13-39); BUN/Creatinine Ratio 14 (6-26); Blood Urea Nitrogen 5 mg/dL (8-23); Calcium 7.6 mg/dL (8.6-10.3); Carbon Dioxide 22 mEq/L (23-29); Chloride 108 mEq/L (98-107); Globulin 1.9 g/dL (2.4-3.5); Glucose 81 mg/dL (70-105); Osmolality,Calculated 276 (280-300); Potassium 4.2 mEq/L (3.5-5.1); Sodium 135 mEq/L (136-145); Total Protein 5.5 g/dL (6.4-8.9); eGFR For African Americans > 60 (> 60); eGFR For Non-African Americans > 60 (> 60)
[2021-08-18] MEDS: Docusate Oral Soln 100 MG/10 ML UDC PO SCH (20:07)
[2021-08-18] MEDS ORDERED: Lactulose Oral Soln 20 GM/30 ML UDC PO SCH (21:00)
[2021-08-18 23:05] LABS: Magnesium 2.1 mg/dL (1.6-2.6)
[2021-08-19] MEDS: *HR* FentaNYL (PF) 100 MCG/2 ML VIAL IVP PRN ×4 (00:10→16:47)
[2021-08-19] MEDS: Piperacillin/Tazobactam 3.375 GM in 0.9 % Sodium Chloride Mini Bag 100 ML IVPB SCH ×3 (04:02→19:48)
[2021-08-19] MEDS: Albuterol 2.5 MG/3 ML NEBULIZER IH SCH ×4 (04:03→19:49)
[2021-08-19] MEDS: Pantoprazole 40 MG VIAL IVP SCH ×2 (04:51→16:47)
[2021-08-19 05:20] LABS: Basophils % 0.2 %; Hematocrit 24.9 % (37.5-50.1); Hemoglobin 7.5 g/dL (12.9-16.9); Immature Granulocytes % 0.7 % (0-4); Lymphocytes # 0.6 K/mcL (0.6-4.6); Lymphocytes % 7.3 %; Mean Corpuscular HGB Conc 30.1 g/dL (31.6-35.5); Mean Corpuscular Hemoglobin 30.2 pg (28.0-33.3); Mean Corpuscular Volume 100.4 fL (83.0-100.0); Mean Platelet Volume 10.7 fL (9.4-12.4); Monocytes # 0.5 K/mcL (0.0-1.3); Neutrophils # 7.5 K/mcL (1.6-8.9); Platelet Count 103 K/mcL (140-400); Red Blood Count 2.48 M/mcL (4.19-5.50); Segmented Neutrophils % 85.8 %; White Blood Count 8.7 K/mcL (4.3-11.1)
[2021-08-19 05:30] LABS: Alanine Aminotransferase 19 Units/L (7-52); Albumin 3.7 g/dL (3.5-5.7); Albumin/Globulin Ratio 2.1 (1.1-2.2); Alkaline Phosphatase 205 Units/L (34-104); Aspartate Amino Transferase 31 Units/L (13-39); BUN/Creatinine Ratio 17 (6-26); Bilirubin,Total 0.8 mg/dL (0.3-1.0); Blood Urea Nitrogen 6 mg/dL (8-23); Calcium 7.9 mg/dL (8.6-10.3); Carbon Dioxide 21 mEq/L (23-29); Chloride 106 mEq/L (98-107); Globulin 1.8 g/dL (2.4-3.5); Glucose 105 mg/dL (70-105); Osmolality,Calculated 284 (280-300); Potassium 3.9 mEq/L (3.5-5.1); Sodium 138 mEq/L (136-145); Total Protein 5.5 g/dL (6.4-8.9); eGFR For African Americans > 60 (> 60); eGFR For Non-African Americans > 60 (> 60)
[2021-08-19 06:04] LABS: Magnesium 2.3 mg/dL (1.6-2.6); Phosphorous 2.1 mg/dL (2.7-4.5)
[2021-08-19] MEDS: Morphine Sulfate ER (12 HR) 15 MG TABLET.ER PO SCH ×2 (08:16→14:39)
[2021-08-19] MEDS: Docusate Oral Soln 100 MG/10 ML UDC PO SCH (08:17)
[2021-08-19] MEDS: Albumin 25% 25gram/100mL 25 GM/100 ML IV.SOLN IVPB SCH ×3 (08:17→23:40)
[2021-08-19] MEDS: Lactulose Oral Soln 20 GM/30 ML UDC PO SCH (08:17)
[2021-08-19] MEDS: *HR* OxyCODONE Immed Rel 5 MG TABLET PO PRN ×2 (10:17→14:42)
[2021-08-19] MEDS ORDERED: *HR* FentaNYL (PF) 100 MCG/2 ML VIAL IVP ONE (11:05)
[2021-08-19] MEDS: *HR* LORazepam 1 MG TABLET PO PRN (18:21)
[2021-08-19 20:26] LABS: BUN/Creatinine Ratio 15 (6-26); Blood Urea Nitrogen 6 mg/dL (8-23); Calcium 7.9 mg/dL (8.6-10.3); Carbon Dioxide 24 mEq/L (23-29); Chloride 106 mEq/L (98-107); Glucose 127 mg/dL (70-105); Magnesium 2.1 mg/dL (1.6-2.6); Osmolality,Calculated 283 (280-300); Potassium 3.7 mEq/L (3.5-5.1); Sodium 137 mEq/L (136-145); eGFR For African Americans > 60 (> 60); eGFR For Non-African Americans > 60 (> 60)
[2021-08-20] MEDS: Morphine Sulfate ER (12 HR) 15 MG TABLET.ER PO SCH ×2 (00:06→05:57)
[2021-08-20] MEDS: *HR* FentaNYL (PF) 100 MCG/2 ML VIAL IVP PRN ×7 (03:23→20:30)
[2021-08-20] MEDS: Piperacillin/Tazobactam 3.375 GM in 0.9 % Sodium Chloride Mini Bag 100 ML IVPB SCH ×3 (03:23→20:30)
[2021-08-20] MEDS: Albuterol 2.5 MG/3 ML NEBULIZER IH SCH ×4 (03:36→20:36)
[2021-08-20] MEDS: Pantoprazole 40 MG VIAL IVP SCH ×2 (05:57→18:14)
[2021-08-20] MEDS: Lactulose Oral Soln 20 GM/30 ML UDC PO SCH (08:25)
[2021-08-20] MEDS: polyethylene glycoL 3350 17 GM POWD.PACK PO SCH (08:28)
[2021-08-20] MEDS: Albumin 25% 25gram/100mL 25 GM/100 ML IV.SOLN IVPB SCH (08:29)
[2021-08-20 09:06] LABS: Basophils % 0.2 %; Mean Platelet Volume 10.9 fL (9.4-12.4); Monocytes % 7.1 %; Red Cell Distribution Width 16.1 % (11.5-14.5)
[2021-08-20 09:08] LABS: Eosinophils % 0.1 %; Hematocrit 24.9 % (37.5-50.1); Hemoglobin 7.7 g/dL (12.9-16.9); Immature Granulocytes % 0.9 % (0-4); Immature Platelets 6.6 % (1.1-6.1); Lymphocytes # 0.7 K/mcL (0.6-4.6); Lymphocytes % 7.1 %; Mean Corpuscular HGB Conc 30.9 g/dL (31.6-35.5); Mean Corpuscular Hemoglobin 30.9 pg (28.0-33.3); Monocytes # 0.7 K/mcL (0.0-1.3); Neutrophils # 7.8 K/mcL (1.6-8.9); Platelet Count 130 K/mcL (140-400); Red Blood Count 2.49 M/mcL (4.19-5.50); Segmented Neutrophils % 84.6 %; White Blood Count 9.2 K/mcL (4.3-11.1)
[2021-08-20 09:18] LABS: VBG Ionized Calcium 1.09 mmol/L (1.15-1.35)
[2021-08-20 09:26] LABS: Alanine Aminotransferase 22 Units/L (7-52); Albumin 3.8 g/dL (3.5-5.7); Alkaline Phosphatase 205 Units/L (34-104); Aspartate Amino Transferase 39 Units/L (13-39); BUN/Creatinine Ratio 16 (6-26); Bilirubin,Total 0.8 mg/dL (0.3-1.0); Blood Urea Nitrogen 6 mg/dL (8-23); Calcium 7.8 mg/dL (8.6-10.3); Carbon Dioxide 23 mEq/L (23-29); Chloride 105 mEq/L (98-107); Globulin 1.9 g/dL (2.4-3.5); Glucose 118 mg/dL (70-105); Magnesium 1.9 mg/dL (1.6-2.6); Osmolality,Calculated 287 (280-300); Potassium 4.1 mEq/L (3.5-5.1); Sodium 139 mEq/L (136-145); Total Protein 5.7 g/dL (6.4-8.9); eGFR For African Americans > 60 (> 60); eGFR For Non-African Americans > 60 (> 60)
[2021-08-20] MEDS: Morphine Sulfate ER (12 HR) 60 MG TABLET.ER PO SCH (19:03)
[2021-08-20] MEDS: Artificial Tears SOLN 15 ML BOTTLE BOTH EYES PRN (19:37)
[2021-08-20] MEDS: *HR* LORazepam 1 MG TABLET PO PRN (20:31)
[2021-08-21] MEDS: Piperacillin/Tazobactam 3.375 GM in 0.9 % Sodium Chloride Mini Bag 100 ML IVPB SCH ×2 (03:34→13:03)
[2021-08-21] MEDS: Albuterol 2.5 MG/3 ML NEBULIZER IH SCH ×4 (04:05→20:26)
[2021-08-21] MEDS: Morphine Sulfate ER (12 HR) 60 MG TABLET.ER PO SCH (05:28)
[2021-08-21] MEDS: Pantoprazole 40 MG VIAL IVP SCH (05:28)
[2021-08-21] MEDS: *HR* FentaNYL (PF) 100 MCG/2 ML VIAL IVP PRN ×3 (05:28→22:57)
[2021-08-21] MEDS: Lactulose Oral Soln 20 GM/30 ML UDC PO SCH (13:04)
[2021-08-21] MEDS: polyethylene glycoL 3350 17 GM POWD.PACK PO SCH (13:04)
[2021-08-21] MEDS ORDERED: Furosemide 20 MG/2 ML VIAL IVP ONE (14:22)
[2021-08-21] MEDS ORDERED: Atropine 1% Opth Drops 100 DROP/5 ML BOTTLE SL PRN (14:23)
[2021-08-21] MEDS: Morphine Sulfate Oral CONC 10 MG/0.5 ML ORAL.SYG SL PRN ×2 (18:35→21:53)
[2021-08-22] MEDS: *HR* LORazepam Oral Conc 2 MG/ML SL PRN (00:05)
[2021-08-22] MEDS: Artificial Tears SOLN 15 ML BOTTLE BOTH EYES PRN (00:05)
[2021-08-22] MEDS: *HR* FentaNYL (PF) 100 MCG/2 ML VIAL IVP PRN ×3 (02:09→14:53)
[2021-08-22] MEDS: Albuterol 2.5 MG/3 ML NEBULIZER IH SCH ×2 (04:03→11:53)
[2021-08-22] MEDS: Morphine Sulfate Oral CONC 10 MG/0.5 ML ORAL.SYG SL PRN ×2 (04:25→09:53)
[2021-08-22] MEDS ORDERED: Albuterol 2.5 MG/3 ML NEBULIZER IH PRN (10:19)
[2021-08-22] MEDS ORDERED: Furosemide 20 MG/2 ML VIAL IVP ONE (10:37)
[2021-08-22] MEDS ORDERED: Morphine Sulfate ER (12 HR) 30 MG TABLET.ER PO ONE (10:37)
[2021-08-22] MEDS: *HR* FentaNYL PATCH 75 MCG PATCH TD SCH (11:29)
[2021-08-23] MEDS: *HR* FentaNYL (PF) 100 MCG/2 ML VIAL IVP PRN ×5 (14:23→23:52)
[2021-08-23] MEDS: Artificial Tears SOLN 15 ML BOTTLE BOTH EYES PRN (19:59)
[2021-08-24] MEDS: *HR* FentaNYL (PF) 100 MCG/2 ML VIAL IVP PRN ×8 (01:51→23:45)
[2021-08-24] MEDS: *HR* LORazepam Oral Conc 2 MG/ML SL PRN ×3 (08:15→23:45)
[2021-08-25] MEDS: *HR* FentaNYL (PF) 100 MCG/2 ML VIAL IVP PRN (02:46)
[2021-08-25] MEDS: Morphine Sulfate 2 MG/ML SYRINGE IVP PRN ×3 (10:12→21:30)
[2021-08-25] MEDS: *HR* FentaNYL PATCH 75 MCG PATCH TD SCH (10:14)
[2021-08-25] MEDS ORDERED: *HR* FentaNYL (PF) 100 MCG/2 ML VIAL IVP PRN (10:51)
[2021-08-25] MEDS: diazePAM 5 MG TABLET PO SCH ×2 (11:23→21:30)
[2021-08-25] MEDS ORDERED: *HR* FentaNYL PATCH 25 MCG PATCH TD ONE (12:00)
[2021-08-26] MEDS: Morphine Sulfate 2 MG/ML SYRINGE IVP PRN ×5 (01:28→21:00)
[2021-08-26] MEDS: diazePAM 5 MG TABLET PO SCH ×2 (09:37→20:59)
[2021-08-27] MEDS: Morphine Sulfate 2 MG/ML SYRINGE IVP PRN ×5 (02:50→21:42)
[2021-08-27] MEDS: diazePAM 5 MG TABLET PO SCH ×2 (07:52→21:42)
[2021-08-27] MEDS: *HR* LORazepam Oral Conc 2 MG/ML SL PRN (10:16)
[2021-08-27] MEDS: Sennosides 8.6 MG TABLET PO SCH ×2 (12:53→21:42)
[2021-08-27] MEDS: *HR* FentaNYL PATCH 100 MCG PATCH TD SCH (12:53)
[2021-08-28] MEDS: Morphine Sulfate 2 MG/ML SYRINGE IVP PRN ×5 (02:42→21:48)
[2021-08-28] MEDS: Sennosides 8.6 MG TABLET PO SCH ×2 (08:09→12:53)
[2021-08-28] MEDS: diazePAM 5 MG TABLET PO SCH ×2 (08:49→21:48)
[2021-08-28] MEDS: *HR* LORazepam Oral Conc 2 MG/ML SL PRN (12:01)
[2021-08-28] MEDS: Nystatin POWDER 30 GM BOTTLE TP SCH (21:48)
[2021-08-29] MEDS: Morphine Sulfate 2 MG/ML SYRINGE IVP PRN ×4 (02:42→17:28)
[2021-08-29] MEDS ORDERED: Acetaminophen IV 1,000 MG/100 ML BAG IVPB ONE (02:59)
[2021-08-29] MEDS: Sennosides 8.6 MG TABLET PO SCH (09:02)
[2021-08-29] MEDS: Nystatin POWDER 30 GM BOTTLE TP SCH ×2 (09:55→16:16)
[2021-08-29] MEDS: *HR* FentaNYL PATCH 100 MCG PATCH TD SCH (09:55)
[2021-08-29] MEDS: diazePAM 5 MG TABLET PO SCH ×2 (09:55→10:02)
[2021-08-29] MEDS ORDERED: Furosemide 40 MG/4 ML VIAL IVP ONE (10:14)
[2021-08-29] MEDS ORDERED: Morphine Sulfate 2 MG/ML SYRINGE IVP PRN (10:15)
[2021-08-29] MEDS ORDERED: Scopolamine Patch 1.5 MG PATCH.TD72 TD SCH (10:15)
[2021-08-29] MEDS: *HR* LORazepam Oral Conc 2 MG/ML SL PRN ×2 (12:43→17:25)
[2021-08-29] MEDS: Atropine Sulfate 1% 40 DROP/2 ML BOTTLE SL PRN ×2 (13:30→17:34)
[2021-08-29 15:24] VITALS: BP 109/73; PULSE 87; TEMP 97.6; O2SAT 95
== END 2021-08-29 19:24 | disposition expired | DRG 871 ==
LOC: INTOOBSV 14:40 → 2ANU 14:40 → SUATTDRO 14:40 → ICNU 20:23 → SUATTDRO 08-09 13:57 → 2NNU 08-10 18:26 → 2ANU 08-21 23:33
PROVIDERS: ADMIT Internal Medicine; ATTEND Hospitalist